=== PATIENT | female | born 1970 | race Caucasian/White ===

== ENCOUNTER → 2017-01-05 | Outpatient (REF) | payer OTHER, BC | LOC: M LAB 01-06 09:58 | PROVIDERS: ATTEND Nurse Practitioner Adult Health | DX: K21.9 Gastro-esophageal reflux disease without esophagitis (principal); R14.0 Abdominal distension (gaseous); R19.7 Diarrhea, unspecified ==

== ENCOUNTER 2017-05-06 19:47 | Emergency (ER) | payer OTHER, BC ==
[~2017-05-06] VITALS: Ht 160 cm; Wt 103.9 kg
[2017-05-06] MEDS ORDERED: OMEP40CA2 (20:07)
[2017-05-06] MEDS ORDERED: DULO1CAP2 (20:07)
[2017-05-06] MEDS ORDERED: MULT1TAB18 PO (20:07)
[2017-05-06] MEDS ORDERED: NS 1,000 ML IV SCH (20:49)
[2017-05-06] MEDS ORDERED: ONDANSETRON 4MG/2ML VIAL (J2405) IV ONE (21:00)
[2017-05-06] MEDS ORDERED: MORPHINE 4 MG/ML 1ML SYRINGE IV ONE ×2 (21:00→22:15)
[2017-05-06 21:14] LABS: BASO # 0.1 K/mm3 (0.0-0.2); EOS # 0.3 K/mm3 (0.0-0.50); EOS % 2.9 % (0.0-3.0); LARGE UNSTAINED CELL # 0.2 K/mm3 (0.0-0.4); LARGE UNSTAINED CELL % 1.7 % (0.0-4.0); LYMPH # 2.1 K/mm3 (1.5-4.5); LYMPH % 23.8 % (24.0-44.0); MEAN CORPUSCULAR HEMOGLOBIN 27.6 pg (27.0-33.0); MEAN CORPUSCULAR VOLUME 83.6 fl (80.0-96.0); MONO # 0.4 K/mm3 (0.0-0.8); MONO % 4.8 % (0.0-5.0); NEUTROPHILS # 5.9 K/mm3 (1.8-7.7); NEUTROPHILS % 65.8 % (36.0-66.0); PLATELET COUNT, AUTOMATED 227 k/mm3 (150-450); RED CELL DISTRIBUTION WIDTH 15.8 % (11.5-14.5); WHITE BLOOD COUNT 8.9 K/mm3 (4.0-10.0)
[2017-05-06 21:26] LABS: CALCIUM OXALATE CRYSTALS SMALL
[2017-05-06 21:31] LABS: CONTROL LINE HCG INT CTR LINE PRESENT
[2017-05-06 21:35] LABS: ALBUMIN 3.4 GM/DL (3.2-5.2); ALBUMIN/GLOBULIN RATIO 0.97 (1.00-1.93); ALKALINE PHOSPHATASE 77 U/L (45-117); ALT/SGPT 19 U/L (12-78); ANION GAP 7 MEQ/L (8-16); AST/SGOT 10 U/L (15-37); BILIRUBIN,DIRECT < 0.1 MG/DL (0.0-0.2); BILIRUBIN,TOTAL 0.1 MG/DL (0.2-1.0); BLOOD UREA NITROGEN 12 MG/DL (7-18); CARBON DIOXIDE LEVEL 26 MEQ/L (21-32); CHLORIDE LEVEL 110 MEQ/L (98-107); CREATININE FOR GFR 0.91 MG/DL (0.55-1.02); GLOMERULAR FILTRATION RATE > 60.0 (>58); GLUCOSE, FASTING 121 MG/DL (70-105); POTASSIUM SERUM 3.6 MEQ/L (3.5-5.1); SODIUM LEVEL 143 MEQ/L (136-145); TOTAL PROTEIN 6.9 GM/DL (6.4-8.2)
--- NOTE | 2017-05-06 22:10 | REPUSA ---
Clinical history: Right upper quadrant pain. Findings: The pancreas is limited in visualization secondary to overlying bowel gas, but appears leonila sly unremarkable. The liver demonstrates uniform echotexture and echogenicity, with no solid lesions. Multiple cysts are seen in the liver bilaterally, measuring up to 1.9 cm. The gallbladder is unremar kable. The common bile duct measures 4 mm and is within normal limits. The right kidney measures 10.5 cm in length and is unremarkable. There is no ascites. Impression: Unremarkable ultrasound examination of the right upper quadrant. Multiple simple bilatera l renal cysts.
[2017-05-06 22:15] VITALS: BP 117/59
[2017-05-06] MEDS ORDERED: GASTROGRAFIN SOLUTION 30ML (Q9963) PO ONE ×2 (22:30)
[2017-05-06] MEDS ORDERED: ISOVUE-370 76% 100ML VIAL (Q9967) As Ordered ONE (22:35)
--- NOTE | 2017-05-07 01:00 | REPUSA ---
CLINICAL HISTORY: Abdominal pain. TECHNIQUE: Multiple axial, sagittal and coronal CT images were obtained through the abdomen and pelvi s after administration of oral and intravenous contrast material. COMMENTS: Comparison to prior exam on 01/02/2006. The liver is enlarged with decreased attenuation. Scattered simple hepatic cysts with the largest clinton suring 2.3 cm. There is no intra or extrahepatic biliary ductal dilatation. The spleen is normal. The gallbladder is mildly thickened. The pancreas is of normal contour and attenuation characteristics. There is no evidence of adrenal mass. Both kidneys demonstrate prompt and equal nephrograms. The kidneys are normal in size, shape and conf iguration. There is no evidence of renal or ureteral mass. No renal or ureteral calculi are identifie d. There is no hydroureter or hydronephrosis. No evidence for appendicitis. There is no bowel wall thickening. No evidence for small or large kyra l obstruction. There is no evidence of abdominal ascites or lymphadenopathy. There is no evidence of intrinsic or extrinsic bladder mass. There is no pelvic ascites or lymphadeno nancy. Fluid-filled cecum. Mild large bowel fecal stasis. Significantly distended bladder. Intrauteri ne device is in good position. Images of the lung bases show no evidence of pleural or parenchymal mass. There are no pleural effusi ons. Minimal bilateral basilar atelectatic pulmonary changes. The bony structures are free of lytic or blastic lesions. Multilevel degenerative changes are seen in volving the thoracolumbar spine. Scattered calcifications are seen involving the aorta and major bran ches compatible with atherosclerosis. IMPRESSION: Fluid-filled cecum. Mild fecal stasis in the colon. Hepatomegaly with fatty liver infiltration. Scattered simple hepatic cysts. Findings have increased in size and number. Distended bladder. Intrauterine device is in good position. Mild thickening of the gallbladder. Thank you for your kind referral of this patient.
[2017-05-07] MEDS ORDERED: HYOS1TAB PO (01:40)
[2017-05-07] MEDS ORDERED: HYOSCYAMINE SULFATE 0.125 MG SUBL TABLET PO ONE (01:45)
--- NOTE | 2017-05-07 07:03 | REP ---
Clinical: Shortness of breath . Comparison: 11/19/2014 . Technique: PA and lateral. Findings: The mediastinum and cardiac silhouette are normal. The lung emmanuel are clear and without acute consolidation, effusion, or pneumothorax. The skeletal structures are intact and normal. Impression: 1. No acute cardiopulmonary process. Signed by Pablo Mead MD 05/07/2017 06:55 A
--- NOTE | 2017-05-08 07:01 | ED PDOC ---
Post-Departure Follow-Up radiology report faxed to Kristy Barajas MD May 08, 2017 07:01
== END 2017-05-07 02:07 | disposition home or self-care (01) ==
LOC: M ED 19:47
DX: K80.50 Calculus of bile duct without cholangitis or cholecystitis without obstruction (principal); K58.9 Irritable bowel syndrome, unspecified; J45.909 Unspecified asthma, uncomplicated; M79.7 Fibromyalgia; G47.33 Obstructive sleep apnea (adult) (pediatric); F17.200 Nicotine dependence, unspecified, uncomplicated; Z79.899 Other long term (current) drug therapy
CPT/HCPCS: 71020; 74177; 76705; 80048; 80076; 81001; 83690; 84703; 85025; 87086; 93041; 96361; 96374; 96375; 96376; 99284; J2405; Q9963; Q9967

== ENCOUNTER → 2017-06-07 | Outpatient (REF) | payer OTHER ==
[~2017-06-07] MED LIST: DULO1CAP2; HYOS1TAB PO; MULT1TAB18 PO; OMEP40CA2
== END ==
LOC: M WUC 13:15
PROVIDERS: ATTEND Physician Assistant
DX: N39.0 Urinary tract infection, site not specified (principal)

== ENCOUNTER → 2017-06-19 | Outpatient (REF) | payer OTHER | LOC: M LAB REF 16:40 | PROVIDERS: ATTEND Nurse Practitioner Women's Health | DX: N39.0 Urinary tract infection, site not specified (principal) ==

== ENCOUNTER → 2017-11-16 | Outpatient (REF) | payer OTHER ==
[2017-11-16 17:24] LABS: IRON (FE) 41 UG/DL (50-170); PERCENT SATURATION 11.5 % (13.2-45.0); RHEUMATOID FACTOR QUANT < 10.0 IU/ML (0-15.0); TOTAL IRON BINDING CAPACITY 355 UG/DL (250-450)
[2017-11-16 18:05] LABS: VITAMIN B12 LEVEL 461 PG/ML (247-911)
[2017-11-20 00:07] LABS: ANTINUCLEAR ANTIBODIES DIRECT Negative (Negative); Lyme Disease IgG/IgM Antibodie <0.91 ISR (0.00-0.90); Lyme Disease IgM Ab Quantitati <0.80 index (0.00-0.79)
== END ==
LOC: M LAB REF 16:35
DX: M25.50 Pain in unspecified joint (principal); D50.9 Iron deficiency anemia, unspecified

== ENCOUNTER → 2018-06-10 | Outpatient (REF) | payer OTHER ==
[2018-06-10 19:48] LABS: FERRITIN 5 NG/ML (8-252); IRON (FE) 34 UG/DL (50-170); PERCENT SATURATION 8.4 % (13.2-45.0); TOTAL IRON BINDING CAPACITY 405 UG/DL (250-450)
[2018-06-10 19:54] LABS: VITAMIN B12 LEVEL 406 PG/ML (247-911)
== END ==
LOC: M LAB REF 17:06
DX: D64.9 Anemia, unspecified (principal)
CPT/HCPCS: 83550

== ENCOUNTER → 2018-08-19 | Outpatient (CLI) | payer OTHER ==
[2018-08-19 20:16] LABS: BASO # 0.1 10^3/uL (0.0-0.2); BASO % 1.3 % (0.0-1.0); EOS # 0.2 10^3/uL (0.0-0.50); EOS % 3.1 % (0.0-3.0); HEMATOCRIT 36.8 % (36.0-47.0); HEMOGLOBIN 11.3 g/dl (12.0-15.5); IMMATURE GRANULOCYTE % 0.3 % (0-3.0); LYMPH # 2.7 10^3/uL (1.5-4.5); LYMPH % 40.8 % (24.0-44.0); MEAN CORPUSCULAR HEMOGLOBIN 27.4 pg (27.0-33.0); MEAN CORPUSCULAR HGB CONC 30.7 g/dl (32.0-36.5); MEAN CORPUSCULAR VOLUME 89.1 fl (80.0-96.0); MONO # 0.5 10^3/uL (0.0-0.8); NEUTROPHILS # 3.1 10^3/uL (1.8-7.7); NEUTROPHILS % 46.5 % (36.0-66.0); PLATELET COUNT, AUTOMATED 236 10^3/uL (150-450); RED BLOOD COUNT 4.13 10^6/uL (4.00-5.40); RED CELL DISTRIBUTION WIDTH 15.8 % (11.5-14.5); WHITE BLOOD COUNT 6.7 10^3/uL (4.0-10.0)
[2018-08-19 20:41] LABS: FREE T4 0.95 NG/DL (0.76-1.46)
[2018-08-19 21:30] LABS: FOLLICLE STIMULATING HORMONE 7.1 mIU/mL; LUTEINIZING HORMONE 3.8 mIU/mL
[2018-08-19 21:56] LABS: ESTIMATED AVERAGE GLUCOSE 114 MG/DL (60-110); HEMOGLOBIN A1c 5.6 %
== END ==
LOC: M WUC 16:22
DX: R53.83 Other fatigue (principal)

== ENCOUNTER → 2018-11-22 | Outpatient (REF) | payer OTHER ==
[2018-11-22 14:16] LABS: PERCENT SATURATION 19.5 % (13.2-45.0)
== END ==
LOC: M LAB REF 13:25
PROVIDERS: ATTEND Internal Medicine
DX: D50.9 Iron deficiency anemia, unspecified (principal)

== ENCOUNTER 2018-12-08 15:04 | Inpatient (IN) | payer OTHER, BC ==
[~2018-12-08] VITALS: Ht 160 cm; Wt 75.0 kg
[~2018-12-08 15:04] MED LIST changes: -OMEP40CA2; +OMEP40CA2 PO
[2018-12-08] MEDS ORDERED: MORPHINE 4 MG/ML 1ML VIAL/SYRINGE (J2270) IV PRN ×2 (15:45→17:30)
[2018-12-08] MEDS ORDERED: NS 1,000 ML IV ONE (15:45)
[2018-12-08] MEDS ORDERED: ONDANSETRON 4MG/2ML VIAL (J2405) IV ONE (15:45)
[2018-12-08 15:51] LABS: BASO # 0.1 10^3/uL (0.0-0.2); BASO % 0.8 % (0.0-1.0); EOS # 0.2 10^3/uL (0.0-0.50); EOS % 2.2 % (0.0-3.0); HEMATOCRIT 37.5 % (36.0-47.0); HEMOGLOBIN 12.1 g/dl (12.0-15.5); LYMPH # 1.9 10^3/uL (1.5-4.5); LYMPH % 22.6 % (24.0-44.0); MEAN CORPUSCULAR HEMOGLOBIN 28.1 pg (27.0-33.0); MEAN CORPUSCULAR HGB CONC 32.3 g/dl (32.0-36.5); MEAN CORPUSCULAR VOLUME 87.2 fl (80.0-96.0); MONO # 0.6 10^3/uL (0.0-0.8); MONO % 6.8 % (0.0-5.0); NEUTROPHILS # 5.7 10^3/uL (1.8-7.7); NEUTROPHILS % 67.4 % (36.0-66.0); PLATELET COUNT, AUTOMATED 255 10^3/uL (150-450); WHITE BLOOD COUNT 8.5 10^3/uL (4.0-10.0)
[2018-12-08 16:16] LABS: HCG, SERUM QUALITATIVE NEGATIVE (NEGATIVE)
[2018-12-08 16:29] LABS: BLOOD UREA NITROGEN 12 MG/DL (7-18); CHLORIDE LEVEL 105 MEQ/L (98-107); CREATININE FOR GFR 0.86 MG/DL (0.55-1.30); GLOMERULAR FILTRATION RATE > 60.0 (>58); GLUCOSE, FASTING 105 MG/DL (70-100); POTASSIUM SERUM 3.8 MEQ/L (3.5-5.1); SODIUM LEVEL 139 MEQ/L (136-145)
[2018-12-08 16:30] LABS: ALBUMIN 3.5 GM/DL (3.2-5.2); ALT/SGPT 362 U/L (12-78); AMYLASE 36 U/L (25-115); BILIRUBIN,DIRECT 1.3 MG/DL (0.0-0.2); BILIRUBIN,TOTAL 2.1 MG/DL (0.2-1.0); CALCIUM LEVEL 8.8 MG/DL (8.5-10.1); CARBON DIOXIDE LEVEL 25 MEQ/L (21-32); TOTAL PROTEIN 6.6 GM/DL (6.4-8.2)
[2018-12-08 16:31] LABS: LIPASE 91 U/L (73-393)
--- NOTE | 2018-12-08 16:41 | REP ---
Clinical: Epigastric pain. Technique: Real time alicea scale ultrasound examination using curved array transducer. Findings: Gallbladder is distended and includes multiple gallstones mild wall thickening and positive sonographic Malave's sign suggesting acute cholecystitis. No pericholecystic fluid is appreciated. The common bile duct is measured and dilated to 12 mm with evidence for choledocholithiasis and stones extending into the duct at the pancreatic head level. Liver demonstrates multiple cysts measuring up to 17 mm on the right and 10 mm on the left. Visualized portions of the pancreas are normal. The right kidney is normal in reniform shape without hydronephrosis and measures 10.2 x 4.5 x 4.1 cm. No ascites. Impression: Findings compatible with acute cholecystitis and obstructing choledocholithiasis with a dilated common bile duct to 12 mm and multiple stones identified in the common bile duct at the level of the pancreatic head. Electronically Signed by Pablo Mead MD 12/08/2018 04:33 P
[2018-12-08] MEDS ORDERED: PIPERACILLIN/TAZOBACTAM SOD 3.375 GM in D5W MINI-BAG PLUS 50 ML IV SCH (17:30)
[2018-12-08] MEDS ORDERED: ACETAMINOPHEN TAB 650MG DOSE (2X325MG) PO PRN (17:30)
[2018-12-08] MEDS ORDERED: PIPERACILLIN/TAZOBACTAM SOD 3.375 GM in D5W MINI-BAG PLUS 50 ML IV ONE (17:30)
[2018-12-08] MEDS ORDERED: ONDANSETRON 4MG/2ML VIAL (J2405) IV PRN (17:30)
[2018-12-08] MEDS ORDERED: DULO1CAP3 PO (17:34)
[2018-12-08] MEDS ORDERED: diphenhydrAMINE INJ 50MG/ML VIAL (J1200) As Ordered ONE (18:03)
[2018-12-08] MEDS ORDERED: diphenhydrAMINE INJ 50MG/ML VIAL (J1200) IV ONE (18:15)
[2018-12-08 20:45] VITALS: BP 117/62
[2018-12-08] MEDS: PANTOPRAZOLE 40MG INJ (PROTONIX) (C9113) IV SCH (20:45)
[2018-12-08] MEDS: SENOKOT S TAB PO SCH (20:45)
[2018-12-08] MEDS: KETOROLAC 30 MG/ML VIAL (J1885) IV PRN (20:46)
[2018-12-08] MEDS: NS 1,000 ML IV SCH (23:04)
[2018-12-08] MEDS: NORCO, ANEXSIA 5/325MG TABLET (HYDROcodone/ACETAMINOPHEN) PO PRN (23:08)
[2018-12-09] VITALS (9 sets, daily range): BP systolic 103–142; BP diastolic 52–90
[2018-12-09] MEDS: NS 1,000 ML IV SCH ×4 (01:45→20:45)
[2018-12-09 07:28] LABS: HEMATOCRIT 32.3 % (36.0-47.0); HEMOGLOBIN 10.5 g/dl (12.0-15.5); MEAN CORPUSCULAR HEMOGLOBIN 28.4 pg (27.0-33.0); MEAN CORPUSCULAR HGB CONC 32.5 g/dl (32.0-36.5); MEAN CORPUSCULAR VOLUME 87.3 fl (80.0-96.0); PLATELET COUNT, AUTOMATED 187 10^3/uL (150-450); WHITE BLOOD COUNT 4.1 10^3/uL (4.0-10.0)
[2018-12-09 07:46] LABS: ALBUMIN 2.7 GM/DL (3.2-5.2); ALT/SGPT 223 U/L (12-78); BILIRUBIN,TOTAL 1.3 MG/DL (0.2-1.0); BLOOD UREA NITROGEN 9 MG/DL (7-18); CALCIUM LEVEL 7.8 MG/DL (8.5-10.1); CARBON DIOXIDE LEVEL 23 MEQ/L (21-32); CHLORIDE LEVEL 111 MEQ/L (98-107); CREATININE FOR GFR 0.71 MG/DL (0.55-1.30); GLOMERULAR FILTRATION RATE > 60.0 (>58); GLUCOSE, FASTING 78 MG/DL (70-100); LIPASE 81 U/L (73-393); POTASSIUM SERUM 3.5 MEQ/L (3.5-5.1); SODIUM LEVEL 141 MEQ/L (136-145); TOTAL PROTEIN 5.5 GM/DL (6.4-8.2)
[2018-12-09] MEDS: SENOKOT S TAB PO SCH ×2 (08:25→20:45)
[2018-12-09] MEDS: PANTOPRAZOLE 40MG INJ (PROTONIX) (C9113) IV SCH ×2 (08:25→20:45)
--- NOTE | 2018-12-09 08:38 | ECGEPIP ---
Stationary ECG Study 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
[2018-12-09] MEDS ORDERED: PANTOPRAZOLE 40MG INJ (PROTONIX) (C9113) IV SCH (09:00)
[2018-12-09] MEDS: NORCO, ANEXSIA 5/325MG TABLET (HYDROcodone/ACETAMINOPHEN) PO PRN ×2 (10:23→21:17)
[2018-12-09] MEDS: KETOROLAC 30 MG/ML VIAL (J1885) IV PRN (13:42)
[2018-12-09] MEDS ORDERED: ROCURONIUM BROMIDE 50 MG/5 ML VIAL As Ordered ONE (15:06)
[2018-12-09] MEDS ORDERED: PROPOFOL 200 MG/20 ML VIAL As Ordered ONE (15:06)
[2018-12-09] MEDS ORDERED: LIDOCAINE 2% INJ 100 MG/5 ML SDV (FOR ANES.) As Ordered ONE (15:06)
[2018-12-09] MEDS ORDERED: GLYCOPYRROLATE INJ 0.2 MG/ML 2 ML VIAL As Ordered ONE (15:08)
[2018-12-09] MEDS ORDERED: MIDAZOLAM INJ 2 MG/2 ML VIAL (J2250) As Ordered ONE (15:09)
[2018-12-09] MEDS ORDERED: fentaNYL 100 MCG/2 ML INJECTION (J3010) As Ordered ONE ×2 (15:09→16:47)
[2018-12-09] MEDS ORDERED: ONDANSETRON 4MG/2ML VIAL (J2405) As Ordered ONE ×2 (15:10→17:28)
[2018-12-09] MEDS ORDERED: dexameTHASONE 4 MG/ML 1ML VIAL (J1100) As Ordered ONE (15:10)
[2018-12-09] MEDS ORDERED: ISOVUE-300 61% 50ML VIAL (Q9967) As Ordered ONE (15:14)
--- NOTE | 2018-12-09 15:42 | HPE ---
DATE OF ADMISSION: 12/08/2018 CHIEF COMPLAINT: Abdominal pain. HISTORY OF PRESENT ILLNESS: The patient is a 48-year-old female who presented yesterday to the emergency room with complaints of right upper quadrant pain radiating into her back. The pain started the night before. She went to bed overnight hoping it would go away. However, in the morning, her pain was persistent so she came into the emergency room early yesterday for evaluation. In the emergency room (ER), she was found to have elevated liver enzymes and ultrasound suspicious for choledocholithiasis as well as cholelithiasis. She was admitted to ia and Dr. Rand has already agreed to see her for possible endoscopic retrograde cholangiopancreatography (ERCP). This morning, she is still complaining of pain in the right upper quadrant. She can not lay on her right side. She did have nausea and vomiting on admission but that has resolved now. No fevers or chills. She has had similar symptoms around last , to the point where she came to the emergency room. However, on the ride here, she threw up and then felt better and never had any evaluation for it, so this is her first known history of cholelithiasis. PAST MEDICAL HISTORY: Asthma, anxiety, gastroesophageal reflux disease (GERD). PAST SURGICAL HISTORY: Laparoscopic band, laparoscopic band removal, incisional hernia repair, gastric sleeve, and she is scheduled next week to have a hiatal hernia repair. ALLERGIES: PENICILLIN and TAZOBACTAM. MEDICATIONS: Please see medical record. SOCIAL HISTORY: Smokes occasionally. Denies drug or alcohol abuse. FAMILY HISTORY: Noncontributory. REVIEW OF SYSTEMS: Pertinent positives and negative as stated in the history of present illness (HPI). PHYSICAL EXAMINATION: GENERAL: Alert and oriented times three, in no acute distress. VITAL SIGNS: Temperature 97.4, pulse 63, respirations 18, blood pressure 117/69, pulse oximetry 97% on room air. HEENT: Pupils equally round and react to light and accommodation. HEART: S1, S2, regular rate and rhythm. LUNGS: Clear to auscultation bilaterally. ABDOMEN: Soft, tender to palpation of the right upper quadrant, localized guarding. No rigidity. No generalized peritonitis. EXTREMITIES: No clubbing, cyanosis or edema. LABORATORY DATA: White count 4.1, hemoglobin 10.5, platelets 187. Lactic acid 1.5, potassium 3.5, total bilirubin 1.3, AST 156, ALT 223, alkaline phosphatase 168, lipase 81. IMAGING STUDIES: Ultrasound of the gallbladder shows findings compatible with acute cholecystitis with an obstructing choledocholithiasis and a dilated common bile duct at 12 mm with multiple stones identified in the common bile duct at the level of the pancreatic head. ASSESSMENT: A 48-year-old female with acute cholecystitis and choledocholithiasis. Recommendation is to proceed with an endoscopic retrograde cholangiopancreatography (ERCP) followed by a laparoscopic cholecystectomy, either inpatient or outpatient as an elective procedure. I discussed this in detail with the patient. She is already scheduled for an outpatient hiatal hernia repair in about a week with a Dr. Cortez at [facility]. I have discussed it with him and he is willing to do her gallbladder procedure at the same time. He is going to have her records sent to him and he will see her on Sunday in the office and attempt to plan for her procedure. If for any reason he is unable to do so then I will gladly help her out with that here instead.
[2018-12-09] MEDS ORDERED: ceFAZolin 2 GM/D5W 50 ML IV BAG (J0690 PER 500MG) As Ordered ONE (16:40)
[2018-12-09] MEDS ORDERED: metroNIDAZOLE/NACL 500MG(5MG/ML)100 ML BAG (S0030) As Ordered ONE (16:42)
[2018-12-09] MEDS ORDERED: CIPROFLOXACIN/D5W 400 MG/200 ML BAG (J0744) As Ordered ONE (16:42)
[2018-12-09] MEDS ORDERED: SUGAMMADEX SODIUM 500 MG/5 ML VIAL (BRIDION) As Ordered ONE (17:16)
--- NOTE | 2018-12-09 17:31 | ROOR ---
Patient Name: Jaylene Ferreira Procedure Date: 12/09/2018 3:16 PM Date of : 1970 Age: 48 Room: Main OR Gender: Female Note Status: Finalized Procedure: ERCP Indications: Evaluation and possible treatment of bile duct stone(s) Providers: Surya RAND MD Referring MD: 2. Inpatient 2. Inpatient Requesting Provider: Medicines: Monitored Anesthesia Care Complications: No immediate complications. Procedure: Pre-Anesthesia Assessment: - The heart rate, respiratory rate, oxygen saturations, blood pressure, adequacy of pulmonary ventilation, and response to care were monitored throughout the procedure. The Duodenoscope was introduced through the mouth, and advanced to the duodenum and used to inject contrast into the bile duct. The ERCP was accomplished without difficulty. The patient tolerated the procedure well. Findings: The pediatric pathologist film was normal. The esophagus was successfully intubated under direct vision. The scope was advanced to a normal major papilla in the descending duodenum without detailed examination of the pharynx, larynx and associated structures, and upper GI tract. The upper GI tract was grossly normal. A wire was passed into the biliary tree. The bile duct was then deeply cannulated over the guidewire. Contrast was injected. I personally interpreted the bile duct images. Ductal flow of contrast was adequate. Image quality was adequate. Choledocholithiasis (Two 5-6 mm stones) was found in a 12 mm dilated duct. A 10 mm biliary sphincterotomy was made with a traction (standard) sphincterotome using ERBE electrocautery. There was no post-sphincterotomy bleeding. The biliary tree was swept with a 9-12 mm balloon starting at the bifurcation. All stones were removed. Impression: - Choledocholithiasis was found. Complete removal was accomplished by biliary sphincterotomy and balloon extraction. - A biliary sphincterotomy was performed. - The biliary tree was swept. Recommendation: - Observe patient's clinical course following today's ERCP with therapeutic intervention. - Clear liquid diet - advance as tolerated to resume previous diet. - Surgical consultation for consideration of cholecystectomy at the next available appointment. Surya Rand MD Surya RAND MD 12/09/2018 5:31:15 PM This report has been signed electronically. Number of Addenda: 0 Note Initiated On: 12/09/2018 3:16 PM Estimated Blood Loss: Estimated blood loss: none.
[2018-12-09] MEDS ORDERED: PERCOCET 5MG/325MG TAB PO PRN (18:00)
[2018-12-09] MEDS ORDERED: LR 1,000 ML IV SCH (18:00)
[2018-12-09] MEDS ORDERED: ONDANSETRON 4MG/2ML VIAL (J2405) IV PRN (18:00)
[2018-12-09] MEDS ORDERED: fentaNYL 100 MCG/2 ML INJECTION (J3010) IV PRN (18:00)
[2018-12-09] MEDS ORDERED: HYDROMORPHONE HCL 0.5 MG/ 0.5 ML SYRINGE (J1170 PER 1) IV PRN (18:00)
--- NOTE | 2018-12-09 20:44 | REP ---
C-ARM VIEWS DURING ERCP: Multiple C-ARM views are performed during the ERCP exam. Common bile duct is catheterized. Contrast opacifies the common bile duct. Balloon catheter is manipulated. 8 minutes and 58 seconds of fluoroscopy time is utilized. Electronically Signed by Rusty Storm MD 12/11/2018 01:28 P
[2018-12-09] MEDS: MAALOX 30 ML SUSP *UDC PO PRN (21:41)
[2018-12-10] VITALS: BP 132/68
[2018-12-10] MEDS: metroNIDAZOLE 500 MG in APPROPRIATE DILUENT 1 EA IV SCH ×3 (00:39→16:43)
[2018-12-10] MEDS: NS 1,000 ML IV SCH ×3 (05:40→22:04)
[2018-12-10] MEDS: CIPROFLOXACIN 400 MG in APPROPRIATE DILUENT 1 EA IV SCH ×2 (05:40→18:08)
[2018-12-10] MEDS: NORCO, ANEXSIA 5/325MG TABLET (HYDROcodone/ACETAMINOPHEN) PO PRN (05:41)
[2018-12-10 07:02] LABS: HEMATOCRIT 30.3 % (36.0-47.0); HEMOGLOBIN 9.8 g/dl (12.0-15.5); MEAN CORPUSCULAR HEMOGLOBIN 28.1 pg (27.0-33.0); MEAN CORPUSCULAR HGB CONC 32.3 g/dl (32.0-36.5); MEAN CORPUSCULAR VOLUME 86.8 fl (80.0-96.0); PLATELET COUNT, AUTOMATED 197 10^3/uL (150-450); RED BLOOD COUNT 3.49 10^6/uL (4.00-5.40)
[2018-12-10 07:32] LABS: ALBUMIN 2.9 GM/DL (3.2-5.2); ALT/SGPT 143 U/L (12-78); BILIRUBIN,TOTAL 0.7 MG/DL (0.2-1.0); BLOOD UREA NITROGEN 7 MG/DL (7-18); CARBON DIOXIDE LEVEL 22 MEQ/L (21-32); CHLORIDE LEVEL 108 MEQ/L (98-107); CREATININE FOR GFR 0.69 MG/DL (0.55-1.30); GLOMERULAR FILTRATION RATE > 60.0 (>58); GLUCOSE, FASTING 115 MG/DL (70-100); POTASSIUM SERUM 3.6 MEQ/L (3.5-5.1); SODIUM LEVEL 137 MEQ/L (136-145); TOTAL PROTEIN 5.9 GM/DL (6.4-8.2)
[2018-12-10 08:30] VITALS: BP 134/76
[2018-12-10] MEDS: SENOKOT S TAB PO SCH ×2 (08:37→22:04)
[2018-12-10] MEDS: PANTOPRAZOLE 40MG INJ (PROTONIX) (C9113) IV SCH ×2 (08:38→22:03)
[2018-12-10 11:46] LABS: ALBUMIN 3.5 GM/DL (3.2-5.2); ALT/SGPT 158 U/L (12-78); BILIRUBIN,TOTAL 0.7 MG/DL (0.2-1.0); BLOOD UREA NITROGEN 6 MG/DL (7-18); CALCIUM LEVEL 8.8 MG/DL (8.5-10.1); CARBON DIOXIDE LEVEL 23 MEQ/L (21-32); CHLORIDE LEVEL 105 MEQ/L (98-107); CREATININE FOR GFR 0.94 MG/DL (0.55-1.30); GLOMERULAR FILTRATION RATE > 60.0 (>58); GLUCOSE, FASTING 93 MG/DL (70-100); LIPASE 2301 U/L (73-393); POTASSIUM SERUM 3.3 MEQ/L (3.5-5.1); SODIUM LEVEL 138 MEQ/L (136-145); TOTAL PROTEIN 6.6 GM/DL (6.4-8.2)
[2018-12-10 12:00] VITALS: BP 130/64
--- NOTE | 2018-12-10 13:36 | IPNPDOC ---
Text Note Date of Service The patient was seen on 12/10/18. NOTE No acute events overnight. Tolerating clq diet. Her pains went away quickly af ter the ERCP yesterday, but then returned about 2am. She is still having significant pain in the RUQ today. No nausea, emesis, or fevers. VSSAF NAD abd - soft, TTP RUQ with localized guarding labs - below A) 48y/o female with choledocholithiasis POD#1 s/p ERCP Post ERCP pancreatitis secondary to ERCP vs. recurrent choledocholithiasis P) abx clq diet IFV hydration ambulate repeat labs in the am if labs improve in the am, then I will plan to dc home and follow up with gastric surgeon sunday. If labs continue to get worse, then we will consider MRCP to look for repeat choledocholithiasis Wilman Hale DO VS,Nelly, I+O VS, Nelly, I+O Laboratory Tests 12/10/18 06:46 Red Blood Count 3.49 L, Mean Corpuscular Volume 86.8, Mean Corpuscular H emoglobin 28.1, Mean Corpuscular Hemoglobin Concent 32.3, Red Cell Distribution Width 13.1, Calcium Level 8.0 L, Aspartate Amino Transf (AST/SGOT) 56 H, Alanine Aminotransferase (ALT/SGPT) 143 H, Alkaline Phosphatase 143 H, Total Bilirubin 0.7, Total Protein 5.9 L, Albumin 2.9 L 12/10/18 10:40 Calcium Level 8.8, Aspartate Amino Transf (AST/SGOT) 55 H, Alanine Aminotransferase (ALT/SGPT) 158 H, Alkaline Phosphatase 158 H, Total Bilirubin 0.7, Total Protein 6.6, Albumin 3.5 # Vital Signs Date Time Temp Pulse Resp B/P (MAP) Pulse Ox O2 Delivery O2 Flow Rate FiO2 12/10/18 12:00 98.3 65 18 130/64 (86) 100 12/09/18 17:55 Room Air 12/09/18 17:35 2 I&O- Last 24 Hours up to 6 AM 12/10/18 06:00 Intake Total 1755 ml Output Total 2500 ml Balance -745 ml MELANIE HALE DO Dec 10, 2018 13:36
[2018-12-10] MEDS ORDERED: zolPIDEM TARTRATE 5 MG TAB PO PRN (14:00)
[2018-12-10] MEDS: KCL 10MEQ/100ML SWI (KRUN) 10 MEQ in APPROPRIATE DILUENT 1 EA IV SCH ×2 (14:11→15:36)
[2018-12-10] MEDS: KETOROLAC 30 MG/ML VIAL (J1885) IV PRN (14:31)
--- NOTE | 2018-12-10 17:29 | IPN ---
DATE: 12/10/2018 STATUS OF PATIENT: Inpatient. She is postop day #1 status post endoscopic retrograde cholangiopancreatography (ERCP) with papillotomy and balloon sweep of common bile duct stones. Postoperatively, she had some abdominal discomfort, which briefly worsened but has since improved significantly. She still feels a little bit of epigastric and right upper quadrant discomfort similar to the discomfort as she walked through the doors prior to the ERCP. Her discomfort at this point is more intermittent. She denies any nausea. No vomiting. She is tolerating clear liquid diet without any difficulty. She is ambulating in the hallway. She is feeling relatively well except for some continued discomfort. PHYSICAL EXAMINATION: Temperature 98.3 with a maximum temperature (T max) of 99.3, pulse is 65, regular, respiratory rate 18, blood pressure is 130/64, pulse ox 100% on room air. Intake and Output: Oral intake is at 1140 mL in and 2400 mL out. She is negative at 1260 mL per 24 hours. Head, eyes, ears, nose and throat: She is without abnormality. There is no oral thrush. Neck is soft, supple. No lymphadenopathy. Chest is clear bilaterally. Heart is regular rate and rhythm, S1, S2. Abdomen is soft, positive bowel sounds, moderately tender in the epigastrium and right upper quadrant, without any rebound tenderness or peritoneal signs. Extremities: Negative for edema. LABORATORY: WBC 6.0, hemoglobin 9.8, hematocrit 30.3, BUN 6, creatinine 0.94, total bilirubin is 0.7, AST 55, ALT 158, alkaline phosphatase 158, lipase is 2301. IMPRESSION: 1. Acute cholecystitis. 2. Biliary colic, status post ERCP with sphincterotomy and stone extraction. 3. Abdominal pain. 4. Elevation of lipase. DISCUSSION: Her abdominal pain postop is similar to her abdominal pain preop, perhaps slightly more spastic. She has no white count, no tachycardia. She is tolerating clear liquids without difficulty. She has no fever. Her pancreatic enzyme may well be related to simple manipulation of the pancreatic duct at the time of the ERCP. Of course, this could be a very slight case of ERCP pancreatitis. As I understand, her abdominal pain is similar in nature as she walked through the door; therefore, her pain may well be more related to her acute cholecystitis. She states that her discomfort has somewhat improved throughout the day, and we are hoping for continued improvement overnight. In the meantime, I would continue her on her clear liquids, pain control and antibiotics to cover her cholecystitis.
[2018-12-10] MEDS: MAALOX 30 ML SUSP *UDC PO PRN (18:49)
[2018-12-10 20:00] VITALS: BP 116/62
[2018-12-10] MEDS: DULoxetine 30 MG CAP (CYMBALTA) PO SCH (22:03)
[2018-12-11] VITALS: BP 125/63
[2018-12-11] MEDS: metroNIDAZOLE 500 MG in APPROPRIATE DILUENT 1 EA IV SCH ×2 (02:08→08:36)
[2018-12-11 04:00] VITALS: BP 135/71
[2018-12-11] MEDS: CIPROFLOXACIN 400 MG in APPROPRIATE DILUENT 1 EA IV SCH (05:45)
[2018-12-11] MEDS: NS 1,000 ML IV SCH (05:45)
[2018-12-11 06:59] LABS: HEMATOCRIT 29.4 % (36.0-47.0); HEMOGLOBIN 9.4 g/dl (12.0-15.5); MEAN CORPUSCULAR HEMOGLOBIN 28.3 pg (27.0-33.0); MEAN CORPUSCULAR VOLUME 88.6 fl (80.0-96.0); PLATELET COUNT, AUTOMATED 170 10^3/uL (150-450); RED BLOOD COUNT 3.32 10^6/uL (4.00-5.40); WHITE BLOOD COUNT 5.1 10^3/uL (4.0-10.0)
[2018-12-11 07:41] LABS: ALBUMIN 2.7 GM/DL (3.2-5.2); ALT/SGPT 89 U/L (12-78); BILIRUBIN,TOTAL 0.4 MG/DL (0.2-1.0); BLOOD UREA NITROGEN 4 MG/DL (7-18); CALCIUM LEVEL 7.9 MG/DL (8.5-10.1); CARBON DIOXIDE LEVEL 23 MEQ/L (21-32); CHLORIDE LEVEL 110 MEQ/L (98-107); GLOMERULAR FILTRATION RATE > 60.0 (>58); GLUCOSE, FASTING 103 MG/DL (70-100); LIPASE 171 U/L (73-393); POTASSIUM SERUM 3.5 MEQ/L (3.5-5.1); SODIUM LEVEL 140 MEQ/L (136-145); TOTAL PROTEIN 5.3 GM/DL (6.4-8.2)
[2018-12-11 08:00] VITALS: BP 140/89
[2018-12-11] MEDS: DULoxetine 30 MG CAP (CYMBALTA) PO SCH (08:36)
[2018-12-11] MEDS: SENOKOT S TAB PO SCH (08:36)
[2018-12-11] MEDS: PANTOPRAZOLE 40MG INJ (PROTONIX) (C9113) IV SCH (08:36)
[2018-12-11] MEDS ORDERED: NORCOTAB PO (11:37)
--- NOTE | 2019-01-02 13:32 | DSES ---
DATE OF ADMISSION: 12/08/2018 DATE OF DISCHARGE: 12/11/2018 ADMISSION DIAGNOSIS: Choledocholithiasis and acute cholecystitis. DISCHARGE DIAGNOSIS: Choledocholithiasis and acute cholecystitis. HOSPITAL COURSE: The patient is a 48-year-old female who came into the emergency room on the with complaints of right upper quadrant pain. She was found to have choledocholithiasis with a dilated common bile duct at 12 mm with multiple stones within it. Dr. Rand was consulted who took her for an ERCP. Postprocedure day one she did develop a slight bit of pancreatitis; however, by the following morning her labs had returned to normal with her lipase coming down from 2300 to 170. She was started on a regular diet, tolerated that well, and had no problems nausea or vomiting. Recommendation was to discharge her home. I spoke with her bariatric surgeon, Dr. Cortez who was already planning a procedure for her next week. He said that he will do her gallbladder surgery at the same time as her hiatal hernia repair as opposed to having her stay here and have her gallbladder done during this admission. PLAN: To discharge her home today. She will follow up with Dr. Cortez on Sunday. All of her questions are answered and if her symptoms return, she will come back to emergency room and we will plan to do her procedure here instead. All of her questions were answered.
== END 2018-12-11 12:30 | disposition home or self-care (01) | DRG 446 ==
LOC: M ED 15:04 → M ED INP 17:19 → M MS5PR 19:40 → M PED 12-09 14:25
PROVIDERS: ADMIT Surgery; ATTEND Surgery
PROC: 0FC98ZZ Extirpation of Matter from Common Bile Duct, Via Natural or Artificial Opening Endoscopic (ICD-10-PCS; principal; 2018-12-09 08:00)
DX: K80.42 Calculus of bile duct with acute cholecystitis without obstruction (principal); J45.909 Unspecified asthma, uncomplicated; F41.9 Anxiety disorder, unspecified; K21.9 Gastro-esophageal reflux disease without esophagitis; Z88.0 Allergy status to penicillin; Z88.8 Allergy status to other drugs, medicaments and biological substances; Z98.84 Bariatric surgery status; K44.9 Diaphragmatic hernia without obstruction or gangrene

== ENCOUNTER → 2018-12-23 | Outpatient (REF) | payer OTHER ==
[~2018-12-23] MED LIST changes: +DULO1CAP3 PO; +NORCOTAB PO
[2018-12-23 16:57] LABS: AMYLASE 45 U/L (25-115); LIPASE 119 U/L (73-393)
== END ==
LOC: M LAB REF 16:27
PROVIDERS: ATTEND Internal Medicine
DX: K85.90 Acute pancreatitis without necrosis or infection, unspecified (principal)

== ENCOUNTER → 2019-07-15 | Outpatient (CLI) | payer OTHER ==
[~2019-07-15] MED LIST changes: -DULO1CAP2; -DULO1CAP3 PO; +DULO1CAP5; +DULO1CAP6 PO; +HYDR-3715 PO; -NORCOTAB PO
[2019-07-15 20:17] LABS: BASO # 0.1 10^3/uL (0.0-0.2); BASO % 1.2 % (0.0-1.0); EOS # 0.4 10^3/uL (0.0-0.5); EOS % 5.8 % (0.0-3.0); HEMATOCRIT 30.3 % (36.0-47.0); HEMOGLOBIN 8.9 g/dl (12.0-15.5); LYMPH # 2.1 10^3/uL (1.5-5.0); LYMPH % 27.9 % (24.0-44.0); MEAN CORPUSCULAR HEMOGLOBIN 24.1 pg (27.0-33.0); MEAN CORPUSCULAR HGB CONC 29.4 g/dl (32.0-36.5); MEAN CORPUSCULAR VOLUME 82.1 fl (80.0-96.0); MONO # 0.7 10^3/uL (0.0-0.8); MONO % 8.6 % (0.0-5.0); NEUTROPHILS # 4.2 10^3/uL (1.5-8.5); NEUTROPHILS % 56.2 % (36.0-66.0); PLATELET COUNT, AUTOMATED 343 10^3/uL (150-450); RED BLOOD COUNT 3.69 10^6/uL (4.00-5.40); WHITE BLOOD COUNT 7.6 10^3/uL (4.0-10.0)
[2019-07-15 20:36] LABS: HEMOGLOBIN A1c 5.5 %
[2019-07-15 20:41] LABS: ERYTHROCYTE SEDIMENTATION RATE 27 mm/hr (0-30)
== END ==
LOC: M WUC 17:21
PROVIDERS: ATTEND Ophthalmology
DX: G45.3 Amaurosis fugax (principal)

== ENCOUNTER → 2019-07-17 | Outpatient (CLI) | payer OTHER, BC ==
--- NOTE | 2019-07-17 09:14 | REP ---
CAROTID ULTRASOUND: Real-time ultrasound evaluation and duplex Doppler interrogation of the extracranial carotid vasculature is performed. There is mild plaquing and narrowing in both carotid bulbs extending into the internal and external carotid arteries. Luminal narrowing is less than 50%. There is no evidence of hemodynamically significant stenosis of either internal carotid artery. Normal flow velocities are seen. The vertebral arteries demonstrate normal direction of flow. RIGHT LEFT Peak systolic velocity ICA 89.5 cm/s 105 cm/s End diastolic velocity ICA 34.4 cm/s 31.1 cm/s Peak systolic velocity CCA 103 cm/s 104 cm/s Peak systolic velocity ECA 84.5 cm/s 79.5 cm/s ICA/CCA ratio 0.81 1.17 IMPRESSION: Bilateral luminal narrowing of the internal carotid arteries less than 50%. No evidence of hemodynamically significant stenosis. Electronically Signed by Rusty Storm MD 07/17/2019 09:06 A
== END ==
LOC: M RAD 07:16
PROVIDERS: ATTEND Ophthalmology
DX: G45.3 Amaurosis fugax (principal)

== ENCOUNTER → 2019-07-17 | Outpatient (REF) | payer OTHER | LOC: M LAB REF 16:56 | PROVIDERS: ATTEND Internal Medicine | DX: D50.9 Iron deficiency anemia, unspecified (principal) ==

== ENCOUNTER → 2019-10-15 | Outpatient (REF) | payer OTHER ==
[~2019-10-15] MED LIST changes: +CALC1TAB26 PO; +D-101000 PO; +GLYCCAP PO; +IRON65TA2 PO; +KP BTAB PO; -OMEP40CA2 PO; +OMEP40CA97 PO; +PROSCAP PO
[2019-10-15 18:15] LABS: APPEARANCE, URINE CLOUDY (CLEAR); BACTERIA, URINE AUTO 3+ (NEGATIVE); BILIRUBIN, URINE AUTO NEGATIVE (NEGATIVE); BLOOD, URINE BLOOD NEGATIVE (NEGATIVE); CALCIUM OXALATE CRYSTALS LARGE; COLOR, URINE YELLOW (YELLOW); GLUCOSE, URINE (UA) AUTO NEGATIVE (NEGATIVE); KETONE, URINE AUTO NEGATIVE (NEGATIVE); LEUKOCYTE ESTERASE, URINE AUTO 1+ (NEGATIVE); MUCUS, URINE SMALL (NEGATIVE); NITRITE, URINE AUTO POSITIVE (NEGATIVE); PROTEIN, URINE AUTO NEGATIVE (NEGATIVE); RBC, URINE AUTO 2 /HPF (0-3); SPECIFIC GRAVITY URINE AUTO 1.012 (1.002-1.035); SQUAMOUS EPITHELIAL CELL UR AU 3 /HPF (0-6); UROBILINOGEN, URINE AUTO 0.2 mg/dL (0.0-2.0); WBC, URINE AUTO 75 /HPF (0-3)
== END ==
LOC: M LAB REF 16:55
PROVIDERS: ATTEND Obstetrics & Gynecology
DX: N39.0 Urinary tract infection, site not specified (principal)

== ENCOUNTER 2019-10-20 10:21 | Emergency (ER) | payer OTHER, BC ==
[~2019-10-20] VITALS: Ht 160 cm; Wt 69.0 kg
[2019-10-20] MEDS ORDERED: NITR100C2 (10:31)
[2019-10-20] MEDS ORDERED: ONDANSETRON 4MG/2ML VIAL (J2405) IV ONE (11:00)
[2019-10-20] MEDS ORDERED: PANTOPRAZOLE 40MG INJ (PROTONIX) (C9113) IV ONE (11:00)
[2019-10-20] MEDS ORDERED: NS 1,000 ML IV ONE (11:00)
[2019-10-20 11:23] LABS: BASO # 0.1 10^3/uL (0.0-0.2); BASO % 1.1 % (0.0-1.0); EOS # 0.1 10^3/uL (0.0-0.5); EOS % 2.2 % (0.0-3.0); HEMATOCRIT 40.3 % (36.0-47.0); HEMOGLOBIN 12.5 g/dl (12.0-15.5); LYMPH # 2.2 10^3/uL (1.5-5.0); LYMPH % 40.1 % (24.0-44.0); MEAN CORPUSCULAR HEMOGLOBIN 27.7 pg (27.0-33.0); MEAN CORPUSCULAR VOLUME 89.4 fl (80.0-96.0); MONO # 0.4 10^3/uL (0.0-0.8); MONO % 7.2 % (0.0-5.0); NEUTROPHILS # 2.7 10^3/uL (1.5-8.5); NEUTROPHILS % 49.2 % (36.0-66.0); PLATELET COUNT, AUTOMATED 191 10^3/uL (150-450); RED BLOOD COUNT 4.51 10^6/uL (4.00-5.40); WHITE BLOOD COUNT 5.5 10^3/uL (4.0-10.0)
[2019-10-20 11:52] LABS: ALBUMIN 3.8 GM/DL (3.2-5.2); ALT/SGPT 18 U/L (12-78); BILIRUBIN,DIRECT < 0.1 MG/DL (0.0-0.2); BILIRUBIN,TOTAL 0.3 MG/DL (0.2-1.0); LIPASE 51 U/L (73-393); TOTAL PROTEIN 6.7 GM/DL (6.4-8.2)
--- NOTE | 2019-10-20 12:25 | REP ---
RIGHT UPPER QUADRANT ULTRASOUND: Real-time sonographic evaluation of the right upper quadrant performed. Gallbladder has been previously removed December 2018. No intrahepatic biliary diltation is seen. Common bile duct measures 10.0 mm. No stones are seen in the visualized portion. Multiple liver cysts are present, largest in the right lobe 1.8 cm in diameter and largest in the left lobe 1.5 cm in diameter. Visualized pancreas is grossly unremarkable, not optimally seen due to overlying bowel gas. Right kidney demonstrates mildly dilated renal pelvis without calyceal dilatation with normal size 10.1 cm in length. No free fluid is seen. IMPRESSION: Common bile duct 10.0 mm. No stones seen in the visualized portion. Mildly dilated right renal pelvis. No free fluid. Electronically Signed by Rusty Storm MD 10/21/2019 04:20 P
[2019-10-20] MEDS ORDERED: ISOVUE-370 76% 100ML VIAL (Q9967) As Ordered ONE (12:29)
--- NOTE | 2019-10-20 13:44 | REP ---
CT ABDOMEN AND PELVIS WITH IV CONTRAST: TECHNIQUE: Axial contrast enhanced images from the lung bases to the pubic symphysis using 100 mL Isovue 370 intravenous contrast material with multiplanar reformations. Visualized lung bases demonstrate no infiltrate. There are multiple liver cysts. The largest is in the right lobe near the inferior vena cava measuring 2.3 cm in diameter. The patient has had a prior cholecystectomy. There is not significant biliary dilatation. The spleen is normal in size with no intrinsic abnormality. The adrenal glands demonstrate no mass. The pancreas demonstrates no mass. The kidneys demonstrate no hydronephrosis. There has been upper abdominal surgery with apparent gastric bypass. I see no adenopathy, free air or free fluid. There is no evidence of appendicitis. There are two tiny appendicoliths in the appendix. No pelvic mass is seen. Uterus and ovaries appear unremarkable. Small follicles are seen in each ovary. Urinary bladder is mildly distended and grossly unremarkable. There is a 4 mm stone identified at the left ureteropelvic junction without evidence of left hydronephrosis. IMPRESSION: Two tiny appendicoliths in the appendix without evidence of appendicitis. No free air or free fluid. There is a 4 mm stone identified at the left ureteropelvic junction without evidence of left hydronephrosis. Electronically Signed by Rusty Storm MD 10/21/2019 03:54 P
[2019-10-20] MEDS ORDERED: FLOM0.4C39 PO (16:09)
[2019-10-20] MEDS ORDERED: CIPR-249 PO (16:09)
[2019-10-20] MEDS ORDERED: ONDA4TAB6 PO (16:14)
[2019-10-20 16:20] VITALS: BP 112/62
--- NOTE | 2019-10-22 10:45 | ED PDOC ---
Post-Departure Follow-Up piter prater and peggy faxed formal report of abdominal us for fu ging Evan Castro MD Oct 22, 2019 10:45
== END 2019-10-20 16:29 | disposition home or self-care (01) ==
LOC: M ED 10:21
DX: N20.1 Calculus of ureter (principal); N39.0 Urinary tract infection, site not specified; K83.8 Other specified diseases of biliary tract; J45.909 Unspecified asthma, uncomplicated; F33.9 Major depressive disorder, recurrent, unspecified; F41.9 Anxiety disorder, unspecified; G47.33 Obstructive sleep apnea (adult) (pediatric); K21.9 Gastro-esophageal reflux disease without esophagitis; Z98.84 Bariatric surgery status; Z79.899 Other long term (current) drug therapy; Z88.0 Allergy status to penicillin; Z88.8 Allergy status to other drugs, medicaments and biological substances; F17.210 Nicotine dependence, cigarettes, uncomplicated
CPT/HCPCS: 74177; 76705; 80047; 80076; 81001; 83690; 85025; 87088; 87186; 96361; 96374; 96375; 99284; C9113; J2405; Q9967

== ENCOUNTER → 2019-11-10 | Outpatient (REF) | payer OTHER, BC ==
[~2019-11-10] MED LIST changes: +CIPR-249 PO; +FLOM0.4C39 PO; +NITR100C2; +ONDA4TAB6 PO
== END ==
LOC: M LAB REF 09:49
PROVIDERS: ATTEND Physician Assistant
DX: J02.9 Acute pharyngitis, unspecified (principal)

== ENCOUNTER → 2019-12-24 | Outpatient (REF) | payer OTHER | LOC: M LAB REF 12:16 | PROVIDERS: ATTEND Internal Medicine Gastroenterology | DX: R19.4 Change in bowel habit (principal); R14.0 Abdominal distension (gaseous); D50.0 Iron deficiency anemia secondary to blood loss (chronic); Z98.84 Bariatric surgery status ==

== ENCOUNTER → 2020-01-16 | Outpatient (REF) | payer OTHER ==
[2020-01-16 17:55] LABS: BASO # 0.1 10^3/uL (0.0-0.2); EOS # 0.1 10^3/uL (0.0-0.5); EOS % 2.1 % (0.0-3.0); HEMATOCRIT 36.8 % (36.0-47.0); LYMPH # 2.1 10^3/uL (1.5-5.0); MEAN CORPUSCULAR HEMOGLOBIN 31.4 pg (27.0-33.0); MEAN CORPUSCULAR HGB CONC 32.6 g/dl (32.0-36.5); MEAN CORPUSCULAR VOLUME 96.3 fl (80.0-96.0); MONO # 0.5 10^3/uL (0.0-0.8); MONO % 7.6 % (0.0-5.0); NEUTROPHILS # 3.9 10^3/uL (1.5-8.5); PLATELET COUNT, AUTOMATED 224 10^3/uL (150-450); RED BLOOD COUNT 3.82 10^6/uL (4.00-5.40); WHITE BLOOD COUNT 6.7 10^3/uL (4.0-10.0)
[2020-01-16 18:07] LABS: FOLLICLE STIMULATING HORMONE 12.3 mIU/mL; LUTEINIZING HORMONE 5.6 mIU/mL
== END ==
LOC: M LABDRAW1 15:26
PROVIDERS: ATTEND Nurse Practitioner Women's Health
DX: N92.0 Excessive and frequent menstruation with regular cycle (principal)

== ENCOUNTER → 2020-01-16 | Outpatient (REF) | payer OTHER ==
[2020-01-16 18:10] LABS: APPEARANCE, URINE CLEAR (CLEAR); BACTERIA, URINE AUTO NEGATIVE (NEGATIVE); BILIRUBIN, URINE AUTO NEGATIVE (NEGATIVE); BLOOD, URINE BLOOD 2+ (NEGATIVE); COLOR, URINE AMBER (YELLOW); GLUCOSE, URINE (UA) AUTO NEGATIVE (NEGATIVE); KETONE, URINE AUTO NEGATIVE (NEGATIVE); LEUKOCYTE ESTERASE, URINE AUTO NEGATIVE (NEGATIVE); NITRITE, URINE AUTO POSITIVE (NEGATIVE); PROTEIN, URINE AUTO NEGATIVE (NEGATIVE); RBC, URINE AUTO 1 /HPF (0-3); SPECIFIC GRAVITY URINE AUTO 1.001 (1.002-1.035); SQUAMOUS EPITHELIAL CELL UR AU 0 /HPF (0-6); UROBILINOGEN, URINE AUTO 0.2 mg/dL (0.0-2.0); WBC, URINE AUTO 0 /HPF (0-3)
== END ==
LOC: M LAB REF 16:59
PROVIDERS: ATTEND Obstetrics & Gynecology
DX: N39.0 Urinary tract infection, site not specified (principal)

== ENCOUNTER → 2020-02-20 | Outpatient (REF) | payer OTHER ==
[2020-02-23 14:06] LABS: ANTINUCLEAR ANTIBODIES DIRECT Negative (Negative)
[2020-02-24 00:06] LABS: CYCLIC CITRULLINATED PEPTIDE 7 units (0-19)
== END ==
LOC: M LAB REF 16:32
PROVIDERS: ATTEND Internal Medicine
DX: M79.7 Fibromyalgia (principal); M25.551 Pain in right hip

== ENCOUNTER → 2020-04-06 | Outpatient (REF) | payer OTHER ==
[2020-04-06 17:08] LABS: PERCENT SATURATION 26.5 % (13.2-45.0)
== END ==
LOC: M LAB REF 16:07
PROVIDERS: ATTEND Internal Medicine
DX: D50.9 Iron deficiency anemia, unspecified (principal)

== ENCOUNTER → 2020-06-22 | Outpatient (REF) | payer OTHER, BC ==
[2020-08-16 04:17] LABS: FERRITIN 10 NG/ML (8-252); IRON (FE) 85 UG/DL (50-170); PERCENT SATURATION 25.8 % (13.2-45.0); TOTAL IRON BINDING CAPACITY 329 UG/DL (250-450)
== END ==
LOC: M LAB REF 17:18
PROVIDERS: ATTEND Internal Medicine
DX: Z98.84 Bariatric surgery status (principal)

== ENCOUNTER → 2020-10-25 | Outpatient (CLI) | payer OTHER, BC ==
[~2020-10-25] MED LIST changes: +CYAN1000VL IM; +GASTROGRAFIN SOLUTION 30ML (Q9963) As Ordered ONE; +ISOVUE-370 76% 100ML VIAL As Ordered ONE
--- NOTE | 2020-10-25 18:04 | REP ---
INDICATION: ABD PAIN. COMPARISON: 10/20/2019 TECHNIQUE: Axial contrast-enhanced images from the lung bases to the pubic symphysis using 100 cc Isovue 370 intravenous contrast material. Delayed images of the abdomen obtained along with coronal and sagittal reformations. This CT examination was performed using the following dose reduction techniques: Automated exposure control, adjustment of mA and/or kv according to the patient's size, and the use of iterative reconstruction technique. FINDINGS: Lung bases are clear. Visualized heart and pericardium are normal. There is evidence for prior bariatric surgery with evidence for hiatal hernia. Liver demonstrates innumerable hypodensities compatible with cysts and suspected benign hemangiomas. Spleen, pancreas, bilateral adrenal glands and kidneys are normal. Evidence for prior cholecystectomy with compensatory biliary ductal dilatation noted. There is no evidence for bowel obstruction. Normal terminal ileum and appendix identified in the right lower quadrant. Moderate to significant fecal stasis throughout the colon may be related to patient's symptoms. Pelvis demonstrates normal bladder and age-appropriate uterus/adnexa with IUD in central satisfactory position. No ascites. No free air. No adenopathy. Abdominal aorta and vasculature without aneurysm or dissection. Musculoskeletal structures demonstrate age-related changes without acute osseous abnormality. IMPRESSION: 1. Moderate to significant fecal stasis possibly related to patient's symptoms. 2. Evidence for prior bariatric surgery with hiatal hernia noted at the gastroesophageal junction. 3. Hepatic hypodensities likely representing benign cysts and hemangioma(s). <Electronically signed by Pablo Mead > 10/25/20 1800
== END ==
LOC: M RAD 15:53
PROVIDERS: ATTEND Internal Medicine Hematology & Oncology
DX: K59.00 Constipation, unspecified (principal); K44.9 Diaphragmatic hernia without obstruction or gangrene; K76.89 Other specified diseases of liver; Z98.84 Bariatric surgery status
CPT/HCPCS: 74177; Q9963; Q9967

== ENCOUNTER 2020-11-09 08:16 | Emergency (ER) | payer OTHER, BC ==
[~2020-11-09] VITALS: Ht 160 cm; Wt 59.5 kg
[~2020-11-09 08:16] MED LIST changes: -GASTROGRAFIN SOLUTION 30ML (Q9963) As Ordered ONE; -ISOVUE-370 76% 100ML VIAL As Ordered ONE
[2020-11-09] MEDS ORDERED: ONDANSETRON 4MG/2ML VIAL IV ONE (09:00)
[2020-11-09] MEDS ORDERED: MORPHINE 2 MG/ML 1ML VIAL (J2270) IV ONE (09:00)
[2020-11-09] MEDS ORDERED: PANTOPRAZOLE 40MG VIAL (C9113 PER 1) IV ONE (09:00)
[2020-11-09] MEDS ORDERED: CYCLOBENZAPRINE 10MG TABLET PO ONE (09:00)
[2020-11-09] MEDS ORDERED: NS 1,000 ML IV ONE (09:00)
--- NOTE | 2020-11-09 09:14 | REP ---
INDICATION: Abdominal Pain COMPARISON: 05/06/2017 TECHNIQUE: PA and lateral. FINDINGS: The mediastinum and cardiac silhouette are normal. The lung emmanuel are clear and without acute consolidation, effusion, or pneumothorax. The skeletal structures are intact and normal. IMPRESSION: No acute cardiopulmonary process. <Electronically signed by Pablo Mead > 11/09/20 [id number]
[2020-11-09 09:37] LABS: BASO # 0.1 10^3/uL (0.0-0.2); BASO % 1.2 % (0.0-1.0); EOS # 0.2 10^3/uL (0.0-0.5); EOS % 3.1 % (0.0-3.0); HEMATOCRIT 41.7 % (36.0-47.0); HEMOGLOBIN 13.4 g/dl (12.0-15.5); LYMPH # 1.9 10^3/uL (1.5-5.0); LYMPH % 38.9 % (24.0-44.0); MEAN CORPUSCULAR HEMOGLOBIN 29.6 pg (27.0-33.0); MEAN CORPUSCULAR HGB CONC 32.1 g/dl (32.0-36.5); MEAN CORPUSCULAR VOLUME 92.3 fl (80.0-96.0); MONO # 0.3 10^3/uL (0.0-0.8); NEUTROPHILS # 2.4 10^3/uL (1.5-8.5); NEUTROPHILS % 49.6 % (36.0-66.0); PLATELET COUNT, AUTOMATED 218 10^3/uL (150-450); RED BLOOD COUNT 4.52 10^6/uL (4.00-5.40); WHITE BLOOD COUNT 4.9 10^3/uL (4.0-10.0)
[2020-11-09 10:04] LABS: INR 0.89; PROTHROMBIN TIME 12.2 SECONDS (12.5-14.3)
[2020-11-09 10:05] LABS: PARTIAL THROMBOPLASTIN TIME 28.1 SECONDS (24.2-38.5)
[2020-11-09] MEDS: GASTROGRAFIN SOLUTION 30ML PO SCH ×2 (10:05→10:29)
[2020-11-09 10:13] LABS: ALT/SGPT 34 U/L (12-78); AMYLASE 46 U/L (25-115); BILIRUBIN,DIRECT < 0.1 MG/DL (0.0-0.2); BILIRUBIN,TOTAL 0.3 MG/DL (0.2-1.0); BLOOD UREA NITROGEN 12 MG/DL (7-18); CALCIUM LEVEL 9.1 MG/DL (8.5-10.1); CARBON DIOXIDE LEVEL 28 MEQ/L (21-32); CHLORIDE LEVEL 105 MEQ/L (98-107); CK-MB VALUE MASS 1.2 NG/ML (<3.6); CPK CREATINE PHOSPHOKINASE 106 U/L (26-192); CREATININE FOR GFR 0.72 MG/DL (0.55-1.30); GLOMERULAR FILTRATION RATE > 60.0 (>51); GLUCOSE, FASTING 91 MG/DL (70-100); LIPASE 70 U/L (73-393); MB/CK RELATIVE INDEX 1.13 (< OR =4); POTASSIUM SERUM 4.1 MEQ/L (3.5-5.1); SODIUM LEVEL 139 MEQ/L (136-145); TOTAL PROTEIN 7.1 GM/DL (6.4-8.2); TROPONIN I < 0.02 NG/ML (< 0.10)
[2020-11-09] MEDS ORDERED: ISOVUE-370 76% 100ML VIAL As Ordered ONE (11:14)
--- NOTE | 2020-11-09 11:54 | REP ---
INDICATION: LUQ pain, s/p gastric bypass. COMPARISON: 10/25/2020 TECHNIQUE: Axial contrast-enhanced images from the lung bases to the pubic symphysis using oral and 100 cc Isovue 370 intravenous contrast material. Coronal and sagittal reformations obtained. This CT examination was performed using the following dose reduction techniques: Automated exposure control, adjustment of mA and/or kv according to the patient's size, and the use of iterative reconstruction technique. FINDINGS: Stable appearance of the gastric bypass surgery noted without acute findings. Remainder of the small and large bowel is grossly unremarkable and without obstruction or acute inflammatory process. Moderate colonic fecal stasis noted which may be related to patient's symptoms. No ascites. No free air. Liver demonstrates stable benign cysts. Spleen, pancreas, bilateral adrenal glands and kidneys are normal. Evidence for prior cholecystectomy with compensatory biliary ductal dilatation again noted. Pelvis demonstrates moderately distended bladder likely transient and relatively normal appearance to the uterus/adnexa with IUD in central satisfactory position. No pelvic fluid. No ascites. No free air. No adenopathy. Abdominal aorta and vasculature appear normal. Musculoskeletal structures are intact and without acute osseous abnormality. IMPRESSION: 1. Moderate fecal stasis is nonspecific. No bowel obstruction or perforation and no acute infectious/inflammatory process to the enteric system noted. 2. Gastric bypass surgery without acute findings. 3. No ascites, focal inflammatory stranding, adenopathy, or free air. <Electronically signed by Pablo Mead > 11/09/20 [id number]
[2020-11-09] MEDS ORDERED: COLA100C5 PO (12:20)
[2020-11-09] MEDS ORDERED: BACL10TA2 PO (12:20)
[2020-11-09 12:45] VITALS: BP 105/63
--- NOTE | 2020-11-09 17:39 | ECGEPIP ---
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
== END 2020-11-09 12:49 | disposition home or self-care (01) ==
LOC: M ED 08:16
DX: K59.00 Constipation, unspecified (principal); M62.838 Other muscle spasm; K21.9 Gastro-esophageal reflux disease without esophagitis; F33.9 Major depressive disorder, recurrent, unspecified; F41.9 Anxiety disorder, unspecified; E53.8 Deficiency of other specified B group vitamins; D50.9 Iron deficiency anemia, unspecified; G47.33 Obstructive sleep apnea (adult) (pediatric); M35.00 Sjogren syndrome, unspecified; M79.7 Fibromyalgia; Z98.84 Bariatric surgery status; Z79.899 Other long term (current) drug therapy; Z88.0 Allergy status to penicillin; Z88.8 Allergy status to other drugs, medicaments and biological substances; F17.210 Nicotine dependence, cigarettes, uncomplicated
CPT/HCPCS: 36415; 71046; 74177; 80048; 80076; 82150; 82550; 82553; 83605; 83690; 84484; 85025; 85610; 85730; 93005; 96361; 96374; 96375; 99284; C9113; J2270; J2405; Q9963; Q9967

== ENCOUNTER → 2020-11-26 | Outpatient (CLI) | payer OTHER, BC ==
[~2020-11-26] MED LIST changes: +BACL10TA2 PO; +COLA100C5 PO; +ELIQ5TAB PO
--- NOTE | 2020-11-26 11:29 | REP ---
INDICATION: PAIN/SWELLING IN ARM, EVAL FOR DVT COMPARISON: None. TECHNIQUE: Real time compression and duplex Doppler evaluation of the Left upper extremity deep venous system is performed. FINDINGS: The Left subclavian, jugular, axillary, brachial, and cephalic veins are fully compressible where accessible with transducer pressure, and demonstrate no intraluminal thrombus and normal venous waveforms. There is no evidence of deep venous thrombosis. However, there is thickening of the wall of the distal basilic vein. There is occlusive thrombus in the adjacent median cubital vein. IMPRESSION: No evidence of deep venous thrombosis of the Left upper extremity deep vein system. Occlusive thrombus in the median cubital vein. <Electronically signed by Rusty Storm > 11/26/20 [id number]
== END ==
LOC: M RAD 10:40
PROVIDERS: ATTEND Internal Medicine Hematology & Oncology
DX: M79.602 Pain in left arm (principal)

== ENCOUNTER → 2021-01-08 | Outpatient (CLI) | payer OTHER, BC | LOC: M LABSMTC 09:59 | PROVIDERS: ATTEND Anesthesiology | DX: Z01.812 Encounter for preprocedural laboratory examination (principal); Z20.822 Contact with and (suspected) exposure to COVID-19 ==

== ENCOUNTER → 2021-01-12 | Outpatient (CLI) | payer OTHER, BC | LOC: M LABSMTC 14:04 | PROVIDERS: ATTEND Anesthesiology | DX: Z01.812 Encounter for preprocedural laboratory examination (principal); Z20.822 Contact with and (suspected) exposure to COVID-19 ==

== ENCOUNTER 2021-01-13 06:13 | Day surgery (SDC) | payer OTHER, BC ==
[~2021-01-13] VITALS: Ht 160 cm; Wt 58.1 kg
[2021-01-13] VITALS (8 sets, daily range): BP systolic 98–115; BP diastolic 47–86
[~2021-01-13 06:13] MED LIST changes: +LIDOCAINE 1% MDV 20ML VIAL SQ PRN; +LR 1,000 ML IV ONE; +ceFAZolin SOD 2 GM in IV 1 EA IV ONE
[2021-01-13 06:46] LABS: HEMATOCRIT 37.4 % (36.0-47.0); HEMOGLOBIN 12.6 g/dl (12.0-15.5); MEAN CORPUSCULAR HEMOGLOBIN 31.5 pg (27.0-33.0); MEAN CORPUSCULAR HGB CONC 33.7 g/dl (32.0-36.5); MEAN CORPUSCULAR VOLUME 93.5 fl (80.0-96.0); PLATELET COUNT, AUTOMATED 211 10^3/uL (150-450); WHITE BLOOD COUNT 5.2 10^3/uL (4.0-10.0)
[2021-01-13] MEDS ORDERED: PHENAZOPYRIDINE 100 MG TAB PO ONE (06:55)
[2021-01-13] MEDS ORDERED: METOCLOPRAMIDE INJ 10MG/2ML VIAL (J2765 PER 1) As Ordered ONE (07:07)
[2021-01-13] MEDS ORDERED: LIDOCAINE 2% 100MG/5ML SDV (FOR ANES.) As Ordered ONE (07:07)
[2021-01-13] MEDS ORDERED: KETOROLAC 60MG 2ML VIAL As Ordered ONE (07:07)
[2021-01-13] MEDS ORDERED: MIDAZOLAM INJ 2MG/2ML VIAL (J2250 PER 1MG) As Ordered ONE (07:07)
[2021-01-13] MEDS ORDERED: propofoL 200 MG/20 ML VIAL As Ordered ONE (07:07)
[2021-01-13] MEDS ORDERED: fentaNYL 100 MCG/2 ML INJECTION (J3010) As Ordered ONE ×2 (07:07→12:08)
[2021-01-13] MEDS ORDERED: ROCURONIUM BROMIDE 50 MG/5 ML VIAL As Ordered ONE ×2 (07:07→08:30)
[2021-01-13] MEDS ORDERED: ONDANSETRON 4MG/2ML VIAL As Ordered ONE (07:07)
[2021-01-13 07:11] LABS: HCG, SERUM QUALITATIVE NEGATIVE (NEGATIVE)
[2021-01-13] MEDS ORDERED: HYDROmorphone HCL 2 MG/ML 1ML VIAL (J1170) As Ordered ONE (08:27)
[2021-01-13] MEDS: fentaNYL 100 MCG/2 ML INJECTION (J3010) IV PRN ×2 (12:07→12:15)
[2021-01-13] MEDS ORDERED: LR 1,000 ML IV SCH (12:20)
[2021-01-13] MEDS ORDERED: NALBUPHINE HCL 10 MG/ML AMP (J2300) IV PRN (12:20)
[2021-01-13] MEDS ORDERED: oxyCODONE 5MG TAB PO PRN (12:20)
[2021-01-13] MEDS ORDERED: diphenhydrAMINE 50MG/ML VIAL (J1200) IV PRN (12:20)
[2021-01-13] MEDS ORDERED: METOCLOPRAMIDE INJ 10MG/2ML VIAL (J2765 PER 1) IV PRN (12:20)
[2021-01-13] MEDS ORDERED: EPIDURAL/PCA KEYS XX PRN (12:20)
[2021-01-13] MEDS ORDERED: NALOXONE INJ 0.4MG/1ML VIAL (J2310 PER 1MG) IV PRN (12:20)
[2021-01-13] MEDS ORDERED: ONDANSETRON 4MG/2ML VIAL IV PRN (12:20)
[2021-01-13] MEDS ORDERED: MORPHINE 1MG/ML IN 0.9% NACL 100ML IV BAG IV PRN (12:20)
[2021-01-13] MEDS ORDERED: HYDROMORPHONE HCL 0.5 MG/ 0.5 ML SYRINGE (J1170 PER 1) IV PRN (12:20)
[2021-01-13] MEDS ORDERED: IBUPROFEN 600MG TAB PO PRN (12:25)
[2021-01-13] MEDS: LR 1,000 ML IV SCH ×2 (13:30→20:48)
[2021-01-13] MEDS: OMEPRAZOLE 20 MG CAP PO SCH (20:47)
[2021-01-13] MEDS: DULoxetine 30 MG CAP (CYMBALTA) PO SCH (20:48)
[2021-01-14 02:00] VITALS: BP 100/69
[2021-01-14] MEDS: LR 1,000 ML IV SCH (04:41)
[2021-01-14 06:00] VITALS: BP 107/56
[2021-01-14] MEDS ORDERED: NORCO, ANEXSIA 5/325MG TABLET (HYDROcodone/ACETAMINOPHEN) PO PRN (06:00)
[2021-01-14 06:38] LABS: HEMATOCRIT 29.5 % (36.0-47.0); MEAN CORPUSCULAR HEMOGLOBIN 31.6 pg (27.0-33.0); MEAN CORPUSCULAR HGB CONC 32.9 g/dl (32.0-36.5); MEAN CORPUSCULAR VOLUME 96.1 fl (80.0-96.0); PLATELET COUNT, AUTOMATED 152 10^3/uL (150-450); RED BLOOD COUNT 3.07 10^6/uL (4.00-5.40); WHITE BLOOD COUNT 7.4 10^3/uL (4.0-10.0)
[2021-01-14 06:44] LABS: HEMOGLOBIN 9.7 g/dl (12.0-15.5)
--- NOTE | 2021-01-14 08:11 | RO ---
OPERATIVE NOTE DATE OF OPERATION: 01/13/2021 PREOPERATIVE DIAGNOSIS/INDICATION FOR SURGERY: Pain, bleeding, prolapse, failed pessary. POSTOPERATIVE DIAGNOSIS: Pain, bleeding, prolapse, failed pessary. PROCEDURE: LAVH/BSO, sacrospinous suspension, cystourethroscopy, anterior-posterior repair, mid-urethral sling using Altis and incidental removal, IUD. SURGEON: Nenita Garza MD [employer]ODU[employer] SUPERVISOR: None ANESTHESIA: General endotracheal anesthesia SPECIMEN: Corpus uterus, ovaries, tubes, redundant vagina. BRIEF DESCRIPTION OF PROCEDURE AND FINDINGS: Jaylene was brought to the operating room where sufficient general endotracheal anesthesia was induced. She was prepped, draped and positioned in the usual sterile fashion. In order to put the uterine manipulator, we of course removed the IUD and placed a Barbour with the ability to backfill, then turned our attention to the abdomen. A transverse semilunar incision was made below the umbilicus with sharp and blunt dissection continued through the subcutaneous tissues until the level of the rectus fascia which was elevated with Elin clamps, transversely incised and secured with a 0 Vicryl retention suture. The Mary Kate cannula was then placed under direct visualization and an open laparoscopic technique and secured in place with 0 Vicryl retention suture and CO2 insufflation was then begun. After adequate CO2 insufflation, the peritoneal cavity was visualized. There were normal, shiny peritoneal surfaces throughout. There was no excrescence, ascites or exudate and there was scarring and adhesion than expected based on the patient's previous surgical history. Photographs were taken to document the operative findings. There was mobile but otherwise normal uterus, ovaries and tubes and the #45 Enseal was used to carefully isolate, cauterize and transect the infundibulopelvic ligament starting on the left, then on the right. Care was taken to avoid injuries to bowel or ureters and the dissection through the superior aspect of the broad ligament was continued to the round which was cauterized and transected bilaterally and then dissected the inferior aspect of the broad ligament bilaterally and used the cold scissors to carefully dissect the bladder flap anteriorly and then attention was turned to working vaginally. Working vaginally, the uterine manipulator was removed. Single-tooth tenacula were placed on the cervix. A circumferential incision was made around the base of the cervix and the cardinal ligaments were isolated, clamped with the Peoples clamps which were used throughout this portion of the case and then transected using the SuperCut scissors and ligated using 0 Vicryl suture. The uterosacrals were then similarly clamped, transected and ligated with the posterior reflection of the peritoneum entered and of course the uterosacrals held for later resecuring with the repair. Based on the patient's posterior reflection laxity, a plan was already made at this point to do a modified Haban as well but of course were still working on the hysterectomy at this point and so the dissection continued anteriorly. The bladder flap was created, protecting the bladder from the field of dissection and then the uterine vasculature was carefully clamped, transected and ligated in progressive fashion along the lateral aspects of the uterus until the level of the previous dissection was reached and the uterus with the attached ovaries and tubes was delivered. The pedicles were carefully evaluated. Good hemostasis was confirm and a modified Haban was then carefully carried out posteriorly and the peritoneal closure in circumferential fashion was also undertaken after that, correcting some of the anterior laxity and the uterosacrals were of course marked for reconnection to the cuff in this closure but we had them with the peritoneum at this point so that we could carefully dissect anteriorly and small anterior further purse-string repair for the cystocele was taken. We then continued the dissection posterior to dissect between the peritoneal cavity and the vagina to the patient's right lateral spine so that the sacrospinous ligament could be carefully identified, cleared and used for the sacrospinous suspension so we carefully carried out blunt dissection for this as is typical and then we loaded two #2-0 Maxon sutures onto each of the Anchorsure anchors so there were two anchors each with two sutures resulting in four sutures so that we could do a four-point suspension of the vaginal apex. After placing the anchors into the sacrospinous ligament, taking care to be medial to the vascular branches and the pudendal nerve and of course not so medial that we were on the spine but in the right location in the sacrospinous ligament, carefully placing those, confirming that they were well secured, then using those four sutures to come back [id number] the vagina at the right length, marking this using Allis clamps that we could tell where on the vagina to come back through. We then closed the cuff and of course resupported the uterosacrals there, taking care not to capture those sutures and then brought down each of those sutures in a single throw, did the cystourethroscopy. The patient, of course, had had preop pyridium which you can see by the pictures and we had normal jets bilaterally and no evidence of injury to the bladder and also evidence of some puckering in the bladder where the support had corrected that cystocele defect already. With that confirming good placement, we put the rest of those throws down and then turned our attention to the AP repair. We still had a little bit of anterior laxity and we opened that dissection anteriorly so that we could work out for the Altis mid-urethral sling as well because that laxity was at the bladder neck and that is contiguous dissection but rather than close this at this point, I did not want to put that mesh in until we had completed the rest of the posterior support but it was easier to do the dissection while we were still lax at the genital hiatus so we went ahead and did the dissection, packed a 4x4 next to that under then went ahead and did the posterior dissection, removing an inverted triangle of tissue at the perineal body. There was a detachment of the rectovaginal septum from the perineal body especially with laxity in the rectovaginal septum on the patient's right side and so the dissection through the posterior wall of the vagina was deviated towards the right so that we could correct that laxity and we dissected the vaginal wall, placed 2-0 Vicryl support sutures, plicating the posterior vaginal wall, still leaving space for future function and then corrected the perineal body and reattached the perineal body to the rectovaginal septum, trimmed any redundant tissue and closed the vaginal epithelium again using 2-0 for this epithelial closure, 0 over the perineal body and 2-0 for the plication. We had good approximation and hemostasis on these tissues. We then turned our attention again anteriorly, confirmed all the anatomical landmarks, placed the Altis, first right side, then left side, carefully brought down that tension so that it was laying flat, not moving the tissues but just laying flat against the tissues without being lax and then supported those anterior tissues as well with 2-0 Vicryl, taking care not to sew in the mesh at all and worked around it and then closed the anterior vagina. The patient has a history of Eliquis which of course she had stopped for the surgery but she was a little oozy up front and I had the mesh there so I decided to put a two inch packing in which will of course be removed before she goes home and of course she has the Barbour anyway but we did scope her after the placement of the Altis to confirm that there was no bladder injury and no evidence of mesh in the vagina or urethra and after that second cystoscopy and the closure within the vagina of all the wounds and then we placed a pack and we went ahead and closed the umbilical wound using the 0 Vicryl suture at the fascia to close that layer and then 3-0 Vicryl in a subcuticular stitch at the skin and dry sterile dressing was then applied. ESTIMATED BLOOD LOSS FOR THE PROCEDURE: About 100 mL. FLUID REPLACEMENT: Crystalloid. COMPLICATIONS: None. CONDITION AND DISPOSITION: Jaylene tolerated the procedure well and was recovering in the recovery room in good condition.
[2021-01-14] MEDS ORDERED: OMEPRAZOLE 20 MG CAP PO SCH (09:00)
[2021-01-14] MEDS ORDERED: DULoxetine 30 MG CAP (CYMBALTA) PO SCH (09:00)
[2021-01-14] MEDS: OMEPRAZOLE 20 MG CAP PO SCH (09:26)
[2021-01-14] MEDS: DULoxetine 30 MG CAP (CYMBALTA) PO SCH (09:26)
== END 2021-01-14 11:30 | disposition home or self-care (01) ==
LOC: M SDC 06:13 → M MSPAV 13:18 → M SDC 01-14 11:30
PROVIDERS: ATTEND Obstetrics & Gynecology
DX: N93.9 Abnormal uterine and vaginal bleeding, unspecified (principal); N80.0 Endometriosis of uterus; R10.2 Pelvic and perineal pain; N81.9 Female genital prolapse, unspecified; N39.46 Mixed incontinence; K44.9 Diaphragmatic hernia without obstruction or gangrene; Z86.718 Personal history of other venous thrombosis and embolism; Z79.01 Long term (current) use of anticoagulants; Z79.899 Other long term (current) drug therapy; K58.8 Other irritable bowel syndrome; K90.9 Intestinal malabsorption, unspecified; Z98.84 Bariatric surgery status; K21.9 Gastro-esophageal reflux disease without esophagitis; D64.9 Anemia, unspecified; F17.218 Nicotine dependence, cigarettes, with other nicotine-induced disorders; M79.7 Fibromyalgia; M35.00 Sjogren syndrome, unspecified; J45.909 Unspecified asthma, uncomplicated; F32.9 Major depressive disorder, single episode, unspecified; F41.9 Anxiety disorder, unspecified
CPT/HCPCS: 36415; 57260; 57282; 57288; 58301; 58571; 84703; 85027; 86850; 86900; 86901; 88307; 96361; 96375; C1713; C1771; J0690; J1170; J1200; J1885; J2250; J2405; J2765; J3010

== ENCOUNTER → 2021-09-09 | Outpatient (CLI) | payer OTHER, BC ==
[~2021-09-09] MED LIST changes: +B-1225002 SL; +FERR325T3 PO; -LIDOCAINE 1% MDV 20ML VIAL SQ PRN; -LR 1,000 ML IV ONE; +OMEP40CA4 PO; -OMEP40CA97 PO; -ceFAZolin SOD 2 GM in IV 1 EA IV ONE
[2021-09-09 17:28] LABS: BASO # 0.1 10^3/uL (0.0-0.2); BASO % 1.1 % (0.0-1.0); EOS # 0.2 10^3/uL (0.0-0.5); EOS % 4.3 % (0.0-3.0); HEMATOCRIT 37.3 % (36.0-47.0); HEMOGLOBIN 12.6 g/dl (12.0-15.5); LYMPH # 2.3 10^3/uL (1.5-5.0); LYMPH % 41.6 % (24.0-44.0); MEAN CORPUSCULAR HGB CONC 33.8 g/dl (32.0-36.5); MEAN CORPUSCULAR VOLUME 91.9 fl (80.0-96.0); MONO # 0.5 10^3/uL (0.0-0.8); MONO % 8.7 % (2.0-8.0); NEUTROPHILS # 2.5 10^3/uL (1.5-8.5); NEUTROPHILS % 44.1 % (36.0-66.0); PLATELET COUNT, AUTOMATED 204 10^3/uL (150-450); RED BLOOD COUNT 4.06 10^6/uL (4.00-5.40); WHITE BLOOD COUNT 5.6 10^3/uL (4.0-10.0)
[2021-09-09 17:49] LABS: ALBUMIN 3.9 GM/DL (3.2-5.2); ALT/SGPT 22 U/L (12-78); BILIRUBIN,TOTAL 0.3 MG/DL (0.2-1.0); BLOOD UREA NITROGEN 12 MG/DL (7-18); CALCIUM LEVEL 9.7 MG/DL (8.5-10.1); CARBON DIOXIDE LEVEL 26 MEQ/L (21-32); CHLORIDE LEVEL 107 MEQ/L (98-107); CREATININE FOR GFR 0.67 MG/DL (0.55-1.30); FERRITIN 12 NG/ML (8-252); GLOMERULAR FILTRATION RATE > 60.0 (>51); GLUCOSE, FASTING 127 MG/DL (70-100); IRON (FE) 88 UG/DL (50-170); PERCENT SATURATION 25.3 % (13.2-45.0); POTASSIUM SERUM 3.5 MEQ/L (3.5-5.1); SODIUM LEVEL 139 MEQ/L (136-145); TOTAL IRON BINDING CAPACITY 348 UG/DL (250-450); TOTAL PROTEIN 6.9 GM/DL (6.4-8.2)
[2021-09-09 18:07] LABS: VITAMIN B12 LEVEL 252 PG/ML (247-911)
== END ==
LOC: M LAB 16:18
PROVIDERS: ATTEND Internal Medicine Hematology & Oncology
DX: D50.9 Iron deficiency anemia, unspecified (principal)

== ENCOUNTER → 2021-09-28 | Outpatient (CLI) | payer OTHER, BC ==
[2021-09-28 11:41] LABS: HEMATOCRIT 37.5 % (36.0-47.0); HEMOGLOBIN 12.7 g/dl (12.0-15.5); MEAN CORPUSCULAR HEMOGLOBIN 30.2 pg (27.0-33.0); MEAN CORPUSCULAR HGB CONC 33.9 g/dl (32.0-36.5); MEAN CORPUSCULAR VOLUME 89.3 fl (80.0-96.0); PLATELET COUNT, AUTOMATED 197 10^3/uL (150-450); WHITE BLOOD COUNT 3.6 10^3/uL (4.0-10.0)
[2021-09-28 12:53] LABS: ALBUMIN 3.6 GM/DL (3.2-5.2); ALT/SGPT 22 U/L (12-78); BILIRUBIN,TOTAL 0.3 MG/DL (0.2-1.0); BLOOD UREA NITROGEN 13 MG/DL (7-18); C REACTIVE PROTEIN QUANTITATIV 1.77 MG/DL (0.00-0.30); CALCIUM LEVEL 8.7 MG/DL (8.5-10.1); CARBON DIOXIDE LEVEL 28 MEQ/L (21-32); CHLORIDE LEVEL 109 MEQ/L (98-107); CREATININE FOR GFR 0.65 MG/DL (0.55-1.30); GLOMERULAR FILTRATION RATE > 60.0 (>51); GLUCOSE, FASTING 84 MG/DL (70-100); IMMUNOGLOBULIN G 794 MG/DL (681-1648); IMMUNOGLOBULIN M 98.3 MG/DL (40-230); POTASSIUM SERUM 3.8 MEQ/L (3.5-5.1); SODIUM LEVEL 142 MEQ/L (136-145); TOTAL PROTEIN 6.6 GM/DL (6.4-8.2)
== END ==
LOC: M LAB 08:46
PROVIDERS: ATTEND Physician Assistant
DX: R19.7 Diarrhea, unspecified (principal)

== ENCOUNTER → 2021-09-28 | Outpatient (CLI) | payer OTHER, BC ==
[~2021-09-28] MED LIST changes: +META28.32 PO
[2021-09-28 12:59] LABS: ALBUMIN 3.5 GM/DL (3.2-5.2); BILIRUBIN,DIRECT 0.1 MG/DL (0.0-0.2); BILIRUBIN,TOTAL 0.4 MG/DL (0.2-1.0); FOLATE 12.1 NG/ML (>5.4); PERCENT SATURATION 13.5 % (13.2-45.0); THYROID STIMULATING HORMONE 1.9 uIU/ML (0.358-3.740); TOTAL 25(OH) VITAMIN D 26.2 NG/ML (30.0-100.0); TOTAL PROTEIN 6.5 GM/DL (6.4-8.2)
[2021-10-07 15:11] LABS: VITAMIN A, RETINOL LEVEL 34.9 ug/dL (20.1-62.0); VITAMIN B1 LEVEL WHOLE BLOOD 143.1 nmol/L (66.5-200.0)
== END ==
LOC: M LAB 08:52
PROVIDERS: ATTEND Surgery
DX: K91.2 Postsurgical malabsorption, not elsewhere classified (principal); Z98.0 Intestinal bypass and anastomosis status; Z87.891 Personal history of nicotine dependence; K28.9 Gastrojejunal ulcer, unspecified as acute or chronic, without hemorrhage or perforation; E55.9 Vitamin D deficiency, unspecified

== ENCOUNTER → 2021-10-15 | Outpatient (REF) | payer OTHER, BC ==
[2021-10-21 21:07] LABS: CALPROTECTIN STOOL 38 ug/g (0-120); FATS NEUTRAL Normal (.); FATS TOTAL Normal (.); PANCREATIC ELASTASE STOOL 136 (>200)
== END ==
LOC: M LAB REF 09:00
PROVIDERS: ATTEND Physician Assistant
DX: R19.7 Diarrhea, unspecified (principal)

== ENCOUNTER → 2022-07-27 | Outpatient (REF) | payer OTHER, BC ==
[~2022-07-27] MED LIST changes: +B-12100011 SL
== END ==
LOC: M WUC 20:10
PROVIDERS: ATTEND Physician Assistant
DX: N39.0 Urinary tract infection, site not specified (principal)

== ENCOUNTER → 2023-05-25 | Outpatient (REF) | payer OTHER, BC ==
[~2023-05-25] MED LIST changes: +CEQU0.09; +CIPR7.5D5 OTIC; +DOXY100C3; +GABA-282 PO; +LOTE5DRO8
[2023-05-25 12:38] LABS: BASO # 0.1 10^3/uL (0.0-0.2); BASO % 1.4 % (0.0-1.0); EOS # 0.1 10^3/uL (0.0-0.5); EOS % 1.8 % (0.0-3.0); HEMATOCRIT 39.1 % (36.0-47.0); HEMOGLOBIN 12.7 g/dl (12.0-15.5); LYMPH % 40.1 % (24.0-44.0); MEAN CORPUSCULAR HEMOGLOBIN 30.4 pg (27.0-33.0); MEAN CORPUSCULAR HGB CONC 32.5 g/dl (32.0-36.5); MEAN CORPUSCULAR VOLUME 93.5 fl (80.0-96.0); MONO # 0.4 10^3/uL (0.0-0.8); NEUTROPHILS # 2.3 10^3/uL (1.5-8.5); NEUTROPHILS % 47.5 % (36.0-66.0); PLATELET COUNT, AUTOMATED 205 10^3/uL (150-450); RED BLOOD COUNT 4.18 10^6/uL (4.00-5.40); WHITE BLOOD COUNT 4.9 10^3/uL (4.0-10.0)
[2023-05-25 12:57] LABS: INR 0.91; PARTIAL THROMBOPLASTIN TIME 28.2 SECONDS (24.8-34.2); PROTHROMBIN TIME 12.5 SECONDS (12.5-14.5)
[2023-05-25 13:01] LABS: BLOOD UREA NITROGEN 11 MG/DL (9-23); CREATININE FOR GFR 0.73 MG/DL (0.55-1.30); GLOMERULAR FILTRATION RATE > 60.0 (>51)
[2023-05-25 13:02] LABS: RHEUMATOID FACTOR QUANT < 3.5 IU/ML (<14)
[2023-05-25 13:04] LABS: FOLATE 11.2 NG/ML (>5.4); VITAMIN B12 LEVEL 502 PG/ML (211-911)
[2023-05-25 13:16] LABS: ERYTHROCYTE SEDIMENTATION RATE 4 mm/hr (0-30)
[2023-05-31 11:45] LABS: DRVV SCREEN 35.5 SEC
[2023-05-31 11:57] LABS: PTT LUPUS TYPE ANTICOAG SCREEN 0.9 (0-1.2)
[2023-06-01 00:10] LABS: ANTI DOUBLE STRAND-DNA AB <1 IU/mL (0-9); ANTINUCLEAR ANTIBODIES DIRECT Positive (Negative); CARDIOLIPIN IGA ANTIBODY <9 APL U/mL (0-11); CARDIOLIPIN IGG ANTIBODY <9 GPL U/mL (0-14); CARDIOLIPIN IGM ANTIBODY <9 MPL U/mL (0-12); IgG P18 AB Absent (.); IgG P23 AB Absent (.); IgG P28 AB Absent (.); IgG P30 AB Absent (.); IgG P39 AB Absent (.); IgG P41 AB Absent (.); IgG P45 AB Absent (.); IgG P66 AB Absent (.); IgG P93 AB Absent (.); IgM P23 AB Absent (.); IgM P39 AB Absent (.); IgM P41 AB Absent (.); LYME IgG WB INTERPRETATION Negative (.); LYME IgM WB INTERPRETATION Negative (.); RNP ANTIBODIES <0.2 AI (0.0-0.9); SJOGREN'S ANTI SS-A <0.2 AI (0.0-0.9); SJOGREN'S ANTI SS-B 2.7 AI (0.0-0.9); SMITH ANTIBODIES <0.2 AI (0.0-0.9); VITAMIN B1 LEVEL WHOLE BLOOD 129.7 nmol/L (66.5-200.0); VITAMIN E(ALPHA TOCOPHEROL) 9.4 mg/L (7.0-25.1); VITAMIN E(GAMMA TOCOPHEROL) 0.9 mg/L (0.5-5.5)
== END ==
LOC: M LAB REF 11:46
PROVIDERS: ATTEND Psychiatry & Neurology Neurology
DX: D50.9 Iron deficiency anemia, unspecified (principal); D51.9 Vitamin B12 deficiency anemia, unspecified

== ENCOUNTER → 2023-08-22 | Outpatient (CLI) | payer OTHER, BC ==
[~2023-08-22] MED LIST changes: +ASCO500T PO; +BIOTLIQ9 MT; +BOTO10VL IM; +GNP250TA9 PO; +OMEG10002 PO; +OMEP40CA5; +RA T500C2 PO; +SUMA50TA2 PO
[2023-08-22 10:17] VITALS: TEMP 97.5
[2023-08-22 10:45] LABS: PLATELET COUNT, AUTOMATED 195 10^3/uL (150-450)
[2023-08-22 10:58] LABS: INR 1.02; PROTHROMBIN TIME 13.1 SECONDS (12.5-14.5)
[2023-08-22 12:39] LABS: APPEARANCE, CSF CLEAR (CLEAR); COLOR, CSF COLORLESS (COLORLESS); CSF TUBE# CELL CNT TUBE 1
[2023-08-22 12:55] LABS: CSF TUBE# TP TUBE 1; TOTAL PROTEIN,CSF 37.6 MG/DL (15-45)
[2023-08-22 12:58] LABS: CSF TUBE# GLU TUBE 1
[2023-08-22 14:30] VITALS: BP 136/78; O2SAT 100
== END ==
LOC: M IRPRO 09:56
PROVIDERS: ATTEND Psychiatry & Neurology Neurology
DX: G35 Multiple sclerosis (principal)

== ENCOUNTER 2023-08-23 08:30 | Emergency (ER) | payer OTHER, BC ==
[~2023-08-23] VITALS: Ht 160 cm; Wt 65.0 kg
[~2023-08-23 08:30] MED LIST changes: -OMEP40CA5
[2023-08-23] MEDS ORDERED: OMEP40CA5 (08:44)
[2023-08-23] MEDS ORDERED: NS 1,000 ML IV ONE (09:20)
[2023-08-23] MEDS ORDERED: diphenhydrAMINE 50MG/ML VIAL IV ONE (09:20)
[2023-08-23] MEDS ORDERED: METOCLOPRAMIDE INJ 10MG/2ML VIAL IV ONE (09:20)
[2023-08-23] MEDS ORDERED: KETOROLAC 30 MG/ML 1ML VIAL IV ONE (09:20)
[2023-08-23 11:15] VITALS: BP 117/69; TEMP 96.9; O2SAT 96
== END 2023-08-23 11:30 | disposition home or self-care (01) ==
LOC: M ED 08:30 → EDBD 08:30 → M ED 11:30
DX: G43.909 Migraine, unspecified, not intractable, without status migrainosus (principal); K21.9 Gastro-esophageal reflux disease without esophagitis; M79.7 Fibromyalgia; M35.00 Sjogren syndrome, unspecified; F17.200 Nicotine dependence, unspecified, uncomplicated; Z88.0 Allergy status to penicillin; Z88.8 Allergy status to other drugs, medicaments and biological substances; Z79.899 Other long term (current) drug therapy
CPT/HCPCS: 96361; 96374; 96375; 99284; J1200; J1885; J2765

== ENCOUNTER → 2023-12-20 | Outpatient (REF) | payer OTHER, BC ==
[~2023-12-20] MED LIST changes: +OMEP40CA5
== END ==
LOC: M LAB REF 18:19
PROVIDERS: ATTEND Internal Medicine
DX: M25.50 Pain in unspecified joint (principal)

== ENCOUNTER 2023-12-26 10:16 | Day surgery (SDC) | payer OTHER, BC ==
[~2023-12-26] VITALS: Ht 160 cm; Wt 64.0 kg
[2023-12-26] MEDS ORDERED: propofoL 500 MG/50 ML VIAL As Ordered ONE (12:18)
[2023-12-26] MEDS: LIDOCAINE 3.5 % 1ML OPHTH TOPICAL GEL OU ONE (12:22)
[2023-12-26] MEDS: LIDOCAINE 2% W/EPINEPHRINE 20ML VIAL **PRES FREE As Ordered ONE (12:47)
[2023-12-26] MEDS: TOBRADEX OPHTH OINT 3.5 GM As Ordered ONE (12:52)
[2023-12-26] MEDS: LR 1,000 ML IV SCH (14:09)
[2023-12-26] MEDS ORDERED: LIDOCAINE 2% 100MG/5ML SDV (FOR ANES.) As Ordered ONE (14:49)
== END 2023-12-26 14:12 | disposition home or self-care (01) ==
LOC: M SDC 10:16
PROVIDERS: ATTEND Ophthalmology
DX: H02.403 Unspecified ptosis of bilateral eyelids (principal); J45.909 Unspecified asthma, uncomplicated; M35.00 Sjogren syndrome, unspecified; G47.30 Sleep apnea, unspecified; K58.9 Irritable bowel syndrome, unspecified; K44.9 Diaphragmatic hernia without obstruction or gangrene; F17.290 Nicotine dependence, other tobacco product, uncomplicated; Z79.899 Other long term (current) drug therapy; Z86.718 Personal history of other venous thrombosis and embolism; Z88.0 Allergy status to penicillin; Z88.8 Allergy status to other drugs, medicaments and biological substances; Z90.710 Acquired absence of both cervix and uterus; Z98.84 Bariatric surgery status

== ENCOUNTER → 2024-05-01 | Outpatient (REF) | payer OTHER, BC ==
[~2024-05-01] MED LIST changes: +ONDA-282 PO; -ONDA4TAB6 PO
== END ==
LOC: M LAB REF 16:27
PROVIDERS: ATTEND Student in an Organized Health Care Education/Training Program
DX: R30.0 Dysuria (principal)

== ENCOUNTER → 2025-07-30 | Outpatient (REF) | payer OTHER, BC ==
[~2025-07-30] MED LIST changes: -FLOM0.4C39 PO; +GABA-1172 PO; -GABA-282 PO; -RA T500C2 PO; +TAMS-18 PO; +TURM500C10 PO
[2025-07-30 18:24] LABS: IRON (FE) 149.0 UG/DL (50-170); PERCENT SATURATION 46.9 % (13.2-45.0)
[2025-07-30 18:28] LABS: VITAMIN B12 LEVEL 283.0 PG/ML (211-911)
== END ==
LOC: M LAB REF 17:26
PROVIDERS: ATTEND Internal Medicine
DX: M79.7 Fibromyalgia (principal); R53.83 Other fatigue; Z98.84 Bariatric surgery status

== ENCOUNTER → 2025-10-13 | Outpatient (REF) | payer OTHER, BC | LOC: M LAB REF 17:36 | PROVIDERS: ATTEND Internal Medicine | DX: M79.7 Fibromyalgia (principal); R53.83 Other fatigue ==